=== PATIENT | female | born 1990 | race Caucasian/White ===

== ENCOUNTER 2018-06-20 13:02 | Inpatient (IN) | payer OTHER ==
[2018-06-20 13:36] VITALS: BMI 28.3
--- NOTE | 2018-06-20 14:50 | HP ---
COWS - Scale Resting Pulse: 1= [place] 81-100 Sweatin= Chills/Flushing Restless Observation: 1= Difficult to Sit Still Pupil Size: 0= Normal to Room Light Bone or Joint Aches: 1= Mild Discomfort Runny Nose/ Eye Tearin= Runny Nose/Eyes GI Upset > 30mins: 3= Vomiting/Diarrhea Tremor Observation: 1= Tremor [place], Not Seen Yawning Observation: 1= 1-2x During Session Anxiety or Irritability: 2=Irritable/Anxious Goose Flesh Skin: 0=Smooth Skin COWS Score: 13 CIWA Score Nausea/Vomitin-Int. Nausea w/Dry Heave Muscle Tremors: 2 Anxiety: 2 Agitation: 2 Paroxysmal Sweats: 1-Minimal Palms Moist Orientation: 0-Oriented Tacttile Disturbances: 1-Very Mild Itch/Numbness Auditory Disturbances: 0-None Visual Disturbances: 0-None Headache: 1-Very Mild CIWA-Ar Total Score: 13 - Admission Criteria OAS Guidelines: Admission for Medically Managed Detox: Requires at least one of the followin. CIWA greater than 12 2. Seizures within the past 24 hours 3. Delirium tremens within the past 24 hours 4. Hallucinations within the past 24 hours 5. Acute intervention needed for co occurring medical disorder 6. Acute intervention needed for co occurring psychiatric disorder 7. Severe withdrawal that cannot be handled at a lower level of care (continued vomiting, continued diarrhea, abnormal vital signs) requiring intravenous medication and/or fluids 8. Patient presents the following: CIWA greater than 12 Admission Criteria Met: Admission criteria met Admission [facility] Chief Complaint: " heroin detox" Allergies/Adverse Reactions: Allergies Allergy/AdvReac Type Severity Reaction Status Date / Time No Known Allergies Allergy Verified 06/20/18 15:19 History of Present Illness: 27 yo female with hx of IV heroin and benzo dependence is here seeking detox, this is patient first admission to this facility. Patient currently under parole for drug DWI, as per patient she is self referred. Last detox 2015 at [facility] in [place]. PMHX: anemia, depression, bipolar, anxiety, PTSD. Denies suicidal / homicidal ideation or suicide attempts. OD x 3, with last episode a week ago. Longest period of sobriety November 2017 - March 2018 while in intermediate, no sobriety period while in the community. Report was on suboxone treatment for opioid disorder but treatment was interrupted once patient was incarcerated. others' Prescriptions Patient Name: Katerina Rubio Date: 1990 Address: [address] [place] [address] Sex: Female Rx Written Rx Dispensed Drug Quantity Days Supply Prescriber Name 11/20/2017 11/21/2017 suboxone 8 mg-2 mg sl film 28 28 Corky Torrez MD 10/23/2017 10/23/2017 suboxone 8 mg-2 mg sl film 28 28 Corky Torrez MD 10/09/2017 10/09/2017 suboxone 8 mg-2 mg sl film 14 14 Corky Torrez MD 10/02/2017 10/02/2017 buprenorphine 8 mg tablet sl 7 7 Corky Torrez MD Exam Limitations: No Limitations - Ebola screening Have you traveled outside of the country in the last 21 days: No Have you had contact with anyone from an Ebola affected area: No Have you been sick,other than usual withdrawal symptoms: No Do you have a fever: No - Review of Systems Constitutional: Chills, Loss of Appetite, Other (fatigue) EENT: reports: Nose Congestion, Throat Pain, Other (runny nose) Cardiac: reports: No Symptoms Reported GI: reports: Nausea, Poor Appetite, Vomiting : reports: No Symptoms Reported Musculoskeletal: reports: Joint Pain Integumentary: reports: No Symptoms Reported Neuro: reports: Headache Endocrine: reports: Increased Thirst Hematology: reports: Anemia Psychiatric: reports: Orientated x3, Anxious Other Systems: Reviewed and Negative Patient History - Patient Medical History Hx Anemia: Yes Hx Asthma: Yes Hx Chronic Obstructive Pulmonary Disease (COPD): No Hx Cancer: No Hx Cardiac Disorders: No Hx Congestive Heart Failure: No Hx Hypertension: No Hx Hypercholesterolemia: No Hx Pacemaker: No HX Cerebrovascular Accident: No Hx Seizures: No Hx Dementia: No Hx Diabetes: No Hx Gastrointestinal Disorders: No Hx Liver Disease: No Hx Genitourinary Disorders: No Hx Sexually Transmitted Disorders: No Hx Renal Disease (ESRD): No Hx Thyroid Disease: No Hx Human Immunodeficiency Virus (HIV): No Hx Hepatitis C: No Hx Depression: Yes Hx Suicide Attempt: No Hx Bipolar Disorder: Yes Hx Schizophrenia: No - Patient Surgical History Past Surgical History: Yes Hx Section: Yes ( x2 , 2011 & 2012) - PPD History Previous Implant?: No Documented Results: Negative w/o proof PPD to be Administered?: Yes - Reproductive History Patient is a Female of Child Bearing Age (11 -55 yrs old): Yes Last Menstrual Period: 06/01/18 Patient : No - Smoking Cessation Smoking history: Current every day smoker Have you smoked in the past 12 months: Yes Aproximately how many cigarettes per day: 20 Hx Chewing Tobacco Use: No Initiated information on smoking cessation: Yes 'Breaking Loose' booklet given: 06/20/18 - Substance & Tx. History Hx Alcohol Use: No Hx Substance Use: Yes Substance Use Type: Heroin Hx Substance Use Treatment: Yes - Substances Abused heroin Route: Injection Frequency: Daily Amount used: 1 bundle Age of first use: 15 Date of Last Use: 06/15/18 VALIUM Route: Oral Frequency: Daily Amount used: 30 MG Age of first use: 15 Date of Last Use: 06/18/18 Family Disease History - Family Disease History Family History: Denies Admission Physical Exam BHS - Vital Signs Vital Signs: Vital Signs - 24 hr 06/20/18 13:34 Temperature 98.2 F Pulse Rate 88 Respiratory 20 Rate Blood Pressure 128/72 - Physical General Appearance: Yes: Nourished, Appropriately Dressed, Mild Distress, Sweating, Anxious HEENTM: Yes: EOMI, Hearing grossly Normal, Normal ENT Inspection, Normocephalic , Normal Voice, MANSOOR, Pharynx Normal, Other (dry mucous membranes) Respiratory: Yes: Chest Non-Tender, Lungs Clear, Normal Breath Sounds, No Respiratory Distress, No Accessory Muscle Use Neck: Yes: Within Normal Limits Breast: Yes: Breast Exam Deferred Cardiology: Yes: Regular Rhythm, Regular Rate Abdominal: Yes: Normal Bowel Sounds, Non Tender, Flat, Soft Genitourinary: Yes: Within Normal Limits Back: Yes: Normal Inspection Musculoskeletal: Yes: full range of Motion, Gait Steady, Pelvis Stable, Back pain Extremities: Yes: Within Normal Limits Neurological: Yes: maintenance trainer II-XII NML intact, Fully Oriented, Alert, Motor Strength 5/5, Depressed Affect Integumentary: Yes: Normal Color, Warm, Moist, Track [place] (left anticubital fossa no infection) Lymphatic: Yes: Within Normal Limits - Diagnostic (1) Opioid dependence with withdrawal Current Visit: Yes Status: Acute (2) Sedative, hypnotic or anxiolytic dependence with withdrawal, uncomplicated Current Visit: Yes Status: Acute (3) Depressed affect Current Visit: Yes Status: Acute (4) Asthma Current Visit: Yes Status: Acute Cleared for Admission [facility] - Detox or Rehab [facility] Level of Care: Medically Managed Detox Regimen/Protocol: Methadone [facility] Breath Alcohol Content Breath Alcohol Content: 0 Urine Pregancy Test - Result Urine Test Results: Negative- NO Line Present Urine Drug Screen - Results Drug Screen Negative: No Urine Drug Screen Results: OPI-Opiates, BZO-Benzodiazepines, FEN-Fentanyl Inpatient Rehab Admission - Rehab Decision to Admit Inpatient rehab admission?: No
[2018-06-20] MEDS ORDERED: P-EPHED 60MG/TRIPROLIDI 2.5MG TABLET PO PRN (15:01)
[2018-06-20] MEDS ORDERED: ACETAMINOPHEN 325 MG TABLET (FP) PO PRN (15:01)
[2018-06-20] MEDS ORDERED: MAGNESIUM CITRATE 300 ML BOTTLE PO PRN (15:01)
[2018-06-20] MEDS ORDERED: MAG HYDROX/AL HYDROX/SIMETH 30 ML UNIT-DOSE CUP PO PRN (15:01)
[2018-06-20] MEDS ORDERED: LOPERAMIDE HCL 2 MG CAPSULE PO PRN (15:01)
[2018-06-20] MEDS ORDERED: NICOTINE POLACRILEX 2 MG GUM BC PRN (15:01)
[2018-06-20] MEDS ORDERED: guaiFENesin/D-METHORPHAN HB 10 ML UNIT-DOSE CUPS PO PRN (15:01)
[2018-06-20] MEDS ORDERED: diazePAM 5 MG TABLET PO PRN (15:01)
[2018-06-20] MEDS ORDERED: MAGNESIUM HYDROX 2400MG/30ML ORAL SUSPENSION 30 ML CUP PO PRN (15:01)
[2018-06-20] MEDS ORDERED: MENTHOL/PHENOL 1 EACH UD MM PRN (15:01)
[2018-06-20] MEDS ORDERED: diazePAM 5 MG TABLET PO ONE (17:15)
[2018-06-20] MEDS ORDERED: METHADONE HCL 10 MG TABLET (FOR DETOX USE ONLY) PO ONE ×2 (17:15→23:00)
[2018-06-20] MEDS: THIAMINE HCL 100 MG TABLET (FP) PO SCH (22:20)
[2018-06-20] MEDS: diazePAM 5 MG TABLET PO SCH (22:20)
[2018-06-21] MEDS: diazePAM 5 MG TABLET PO SCH ×3 (06:01→22:31)
[2018-06-21] MEDS ORDERED: METHADONE HCL 10 MG TABLET (FOR DETOX USE ONLY) PO ONE (10:00)
[2018-06-21 10:47] LABS: HEMATOCRIT 37.7 % (32.4-45.2); HEMOGLOBIN 13.2 GM/dL (10.7-15.3); MCH 33.1 pg (25.7-33.7); MCHC 35.2 g/dl (32.0-36.0); MEAN CELL VOLUME 94.3 fl (80-96); MEAN PLT VOLUME 7.8 fl (7.5-11.1); PLATELET COUNT 344 K/MM3 (134-434); RDW 12.9 % (11.6-15.6); WHITE BLOOD COUNT 7.1 K/mm3 (4.0-10.0)
[2018-06-21] MEDS: PRENATAL VITAMINS W/ FOLIC ACID TABLET (FP) PO SCH (10:58)
[2018-06-21] MEDS: NICOTINE 21 MG/24 HOURS TOPICAL PATCH TD SCH (10:58)
[2018-06-21] MEDS: diazePAM 5 MG TABLET PO PRN ×2 (10:59→17:34)
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
[2018-06-21 11:38] LABS: ALBUMIN 4.3 g/dl (3.4-5.0); ALK PHOS 73 U/L (45-117); ANION GAP 8 MMOL/L (8-16); BILIRUBIN,TOTAL 0.7 mg/dL (0.2-1); BLOOD UREA NITROGEN 9 mg/dL (7-18); CALCIUM 9.2 mg/dL (8.5-10.1); CHLORIDE 98 mmol/L (98-107); CO2 30 mmol/L (21-32); CREATININE 0.7 mg/dL (0.55-1.3); GLUCOSE,RANDOM 90 mg/dL (74-106); POTASSIUM 3.5 mmol/L (3.5-5.1); SGOT/AST 20 U/L (15-37); SGPT/ALT 22 U/L (13-61); SODIUM 136 mmol/L (136-145); TOT PROT 7.8 g/dl (6.4-8.2)
--- NOTE | 2018-06-21 12:00 | EKG ---
Test Reason : Blood Pressure : / mmHG Vent. Rate : 071 BPM Atrial Rate : 071 BPM P-R Int : 128 ms QRS Dur : 090 ms QT Int : 386 ms P-R-T Axes : 023 076 032 degrees QTc Int : 419 ms NORMAL SINUS RHYTHM WITH SINUS ARRHYTHMIA NORMAL ECG NO PREVIOUS ECGS AVAILABLE Confirmed by CORRINA BROWN MD ([id number]) on 06/21/2018 12:00:11 PM Referred By: Confirmed By:CORRINA BROWN MD
--- NOTE | 2018-06-21 15:38 | PN ---
S CIWA - CIWA Score Nausea/Vomitin Muscle Tremors: None Anxiety: 2 Agitation: 0-Normal Activity Paroxysmal Sweats: 3 Orientation: 0-Oriented Tacttile Disturbances: 3-Moderate Itch/Numb/Burn Auditory Disturbances: 0-None Visual Disturbances: 2-Mild Sensitivity Headache: 2-Mild CIWA-Ar Total Score: 15 BHS COWS - Scale Resting Pulse: 1= [place] 81-100 Sweatin= Chills/Flushing Restless Observation: 1= Difficult to Sit Still Pupil Size: 0= Normal to Room Light Bone or Joint Aches: 2= Severe Diffuse Aches Runny Nose/ Eye Tearin= None GI Upset > 30mins: 2= Nausea/Diarrhea Tremor Observation of Outstretched Hands: 0= None Yawning Observation: 1= 1-2x During Session Anxiety or Irritability: 2=Irritable/Anxious Goose Flesh Skin: 3=Piloerection COWS Score: 13 BHS Progress Note (SOAP) Subjective: Nausea, Interrupted Sleep, Itching, Sweating, H/A. Objective: PATIENT A & O X 2 (UNCERTAIN ABOUT CURRENT DAY / DATE). PATIENT OBSERVED AMBULATING ON UNIT. IN NO ACUTE DISTRESS. 06/21/18 15:36 Vital Signs Temperature 98.1 F 06/21/18 13:55 Pulse Rate 94 H 06/21/18 13:55 Respiratory Rate 20 06/21/18 13:55 Blood Pressure 100/80 06/21/18 13:55 O2 Sat by Pulse Oximetry (%) Laboratory Tests 06/20/18 06/21/18 06/21/18 06:24 06:24 06:24 WBC 7.1 RBC 4.00 Hgb 13.2 Hct 37.7 MCV 94.3 MCH 33.1 MCHC 35.2 RDW 12.9 Plt Count 344 MPV 7.8 Sodium 136 Potassium 3.5 Chloride 98 Carbon Dioxide 30 Anion Gap 8 BUN 9 Creatinine 0.7 Creat Clearance w eGFR > 60 Random Glucose 90 Calcium 9.2 Total Bilirubin 0.7 AST 20 ALT 22 Alkaline Phosphatase 73 Total Protein 7.8 Albumin 4.3 RPR Titer HIV 1&2 Antibody Screen Negative HIV P24 Antigen Negative 06/21/18 06:24 WBC RBC Hgb Hct MCV MCH MCHC RDW Plt Count MPV Sodium Potassium Chloride Carbon Dioxide Anion Gap BUN Creatinine Creat Clearance w eGFR Random Glucose Calcium Total Bilirubin AST ALT Alkaline Phosphatase Total Protein Albumin RPR Titer Nonreactive HIV 1&2 Antibody Screen HIV P24 Antigen LABS NOTED. HCV AB RESULT PENDING. 06/21/18 15:38 Assessment: 06/21/18 15:37 WITHDRAWAL SYMPTOMS. Plan: CONTINUE DETOX. INCREASE DAILY PO FLUID INTAKE. TIGAN PO FOR NAUSEA.
[2018-06-21] MEDS: THIAMINE HCL 100 MG TABLET (FP) PO SCH (22:30)
[2018-06-21] MEDS: TRIMETHOBENZAMIDE HCL 300 MG CAPSULE PO PRN (22:30)
[2018-06-21] MEDS: QUEtiapine FUMARATE 50 MG TABLET PO SCH (22:30)
[2018-06-22] MEDS ORDERED: METHADONE HCL 5 MG TABLET (FOR DETOX USE ONLY) PO ONE (10:00)
[2018-06-22] MEDS: diazePAM 5 MG TABLET PO SCH ×2 (10:39→22:02)
[2018-06-22] MEDS: NICOTINE 21 MG/24 HOURS TOPICAL PATCH TD SCH (10:39)
[2018-06-22] MEDS: PRENATAL VITAMINS W/ FOLIC ACID TABLET (FP) PO SCH (10:39)
[2018-06-22] MEDS: TRIMETHOBENZAMIDE HCL 300 MG CAPSULE PO PRN (10:40)
[2018-06-22] MEDS: diazePAM 5 MG TABLET PO PRN ×2 (14:23→18:40)
[2018-06-22] MEDS: IBUPROFEN 400 MG TABLET (FP) PO PRN (17:20)
--- NOTE | 2018-06-22 19:03 | PN ---
S CIWA - CIWA Score Nausea/Vomitin Muscle Tremors: 3 Anxiety: 3 Agitation: 0-Normal Activity Paroxysmal Sweats: No Perspiration Orientation: 0-Oriented Tacttile Disturbances: 2-Mild Itch/Numbness/Burn Auditory Disturbances: 0-None Visual Disturbances: 0-None Headache: 3-Moderate CIWA-Ar Total Score: 14 BHS COWS - Scale Resting Pulse: 1= MA 81-100 Sweatin= No chills or Flushing Restless Observation: 0= Sits Still Pupil Size: 0= Normal to Room Light Bone or Joint Aches: 0= None Runny Nose/ Eye Tearin= None GI Upset > 30mins: 2= Nausea/Diarrhea Tremor Observation of Outstretched Hands: 2= Slight Tremor Visible Yawning Observation: 2= >3x During Session Anxiety or Irritability: 2=Irritable/Anxious Goose Flesh Skin: 0=Smooth Skin COWS Score: 9 BHS Progress Note (SOAP) Subjective: Tremors, Fatigue, H/A, Nausea. Objective: PATIENT A & O X 3, OBSERVED AMBULATING ON UNIT. IN NO ACUTE DISTRESS. 06/22/18 19:02 Vital Signs Temperature 97.1 F L 06/22/18 17:51 Pulse Rate 87 06/22/18 17:51 Respiratory Rate 16 06/22/18 17:51 Blood Pressure 119/87 06/22/18 17:51 O2 Sat by Pulse Oximetry (%) Laboratory Tests 06/20/18 06/20/18 06/21/18 06:24 06:24 06:24 WBC 7.1 RBC 4.00 Hgb 13.2 Hct 37.7 MCV 94.3 MCH 33.1 MCHC 35.2 RDW 12.9 Plt Count 344 MPV 7.8 Sodium Potassium Chloride Carbon Dioxide Anion Gap BUN Creatinine Creat Clearance w eGFR Random Glucose Calcium Total Bilirubin AST ALT Alkaline Phosphatase Total Protein Albumin RPR Titer Hep C Ab Diagnostic <0.1 HIV 1&2 Antibody Screen Negative HIV P24 Antigen Negative 06/21/18 06/21/18 06:24 06:24 WBC RBC Hgb Hct MCV MCH MCHC RDW Plt Count MPV Sodium 136 Potassium 3.5 Chloride 98 Carbon Dioxide 30 Anion Gap 8 BUN 9 Creatinine 0.7 Creat Clearance w eGFR > 60 Random Glucose 90 Calcium 9.2 Total Bilirubin 0.7 AST 20 ALT 22 Alkaline Phosphatase 73 Total Protein 7.8 Albumin 4.3 RPR Titer Nonreactive Hep C Ab Diagnostic HIV 1&2 Antibody Screen HIV P24 Antigen LABS NOTED. Assessment: 06/22/18 19:03 WITHDRAWAL SYMPTOMS. Plan: CONTINUE DETOX. INCREASE DAILY PO FLUID INTAKE. PRN TIGAN PO FOR NAUSEA.
[2018-06-22 21:26] LABS: URINE APPEARANCE CLEAR; URINE BILIRUBIN NEGATIVE (<2.0 mg/dL); URINE COLOR STRAW; URINE GLUCOSE (UA) NEGATIVE (NEGATIVE); URINE KETONE NEGATIVE (NEGATIVE); URINE LEUK ESTERASE NEGATIVE (NEGATIVE); URINE NITRITE NEGATIVE (NEGATIVE); URINE PROTEIN NEGATIVE (NEGATIVE)
[2018-06-22] MEDS: QUEtiapine FUMARATE 50 MG TABLET PO SCH (22:02)
[2018-06-22] MEDS: THIAMINE HCL 100 MG TABLET (FP) PO SCH (22:02)
[2018-06-22] MEDS: MELATONIN 5 MG TABLETS PO PRN (22:02)
[2018-06-23] MEDS: IBUPROFEN 400 MG TABLET (FP) PO PRN (09:04)
[2018-06-23] MEDS: diazePAM 5 MG TABLET PO SCH ×2 (09:05→22:02)
[2018-06-23] MEDS: TRIMETHOBENZAMIDE HCL 300 MG CAPSULE PO PRN (09:06)
[2018-06-23] MEDS ORDERED: METHADONE HCL 5 MG TABLET (FOR DETOX USE ONLY) PO ONE (10:00)
[2018-06-23] MEDS: NICOTINE 21 MG/24 HOURS TOPICAL PATCH TD SCH (10:11)
[2018-06-23] MEDS: PRENATAL VITAMINS W/ FOLIC ACID TABLET (FP) PO SCH (10:11)
[2018-06-23] MEDS: diazePAM 5 MG TABLET PO PRN (13:51)
--- NOTE | 2018-06-23 16:53 | PN ---
BHS Progress Note (SOAP) Subjective: vomiting anxiety constipation verbalized wanting to get back on suboxone Objective: 06/23/18 16:51 A & O x 3 Ambulating on unit Restless Vital Signs Temperature 97 F L 06/23/18 13:29 Pulse Rate 86 06/23/18 13:29 Respiratory Rate 18 06/23/18 13:29 Blood Pressure 135/80 06/23/18 13:29 O2 Sat by Pulse Oximetry (%) Assessment: 06/23/18 16:52 withdrawal sx anxious about aftercare plan Plan: continue detox continue anti emetic prn maalox/citroma for constipation educated and encouraged to discuss d/c plan with counselor
[2018-06-23] MEDS: hydrOXYzine PAMOATE 50 MG CAPSULE (FP) PO PRN (17:50)
[2018-06-23] MEDS: QUEtiapine FUMARATE 50 MG TABLET PO SCH (22:02)
[2018-06-23] MEDS: THIAMINE HCL 100 MG TABLET (FP) PO SCH (22:02)
[2018-06-23] MEDS: MELATONIN 5 MG TABLETS PO PRN (22:03)
[2018-06-24] MEDS ORDERED: METHADONE HCL 10 MG TABLET (FOR DETOX USE ONLY) PO ONE (10:00)
[2018-06-24] MEDS ORDERED: diazePAM 5 MG TABLET PO SCH (10:00)
[2018-06-24] MEDS: NICOTINE 21 MG/24 HOURS TOPICAL PATCH TD SCH (10:21)
[2018-06-24] MEDS: PRENATAL VITAMINS W/ FOLIC ACID TABLET (FP) PO SCH (10:21)
--- NOTE | 2018-06-24 11:30 | PN ---
[facility] CIWA - CIWA Score Nausea/Vomitin-No Nausea/No Vomiting Muscle Tremors: 2 Anxiety: 1-Mildly Anxious Agitation: 1-Slight > Activity Paroxysmal Sweats: 1-Minimal Palms Moist Orientation: 0-Oriented Tacttile Disturbances: 0-None Auditory Disturbances: 0-None Visual Disturbances: 0-None Headache: 1-Very Mild CIWA-Ar Total Score: 6 S COWS - Scale Resting Pulse: 0= CT 80 or Below Sweatin= Chills/Flushing Restless Observation: 0= Sits Still Pupil Size: 0= Normal to Room Light Bone or Joint Aches: 1= Mild Discomfort Runny Nose/ Eye Tearin= Nasal Congestion GI Upset > 30mins: 1= Stomach Cramp Tremor Observation of Outstretched Hands: 0= None Yawning Observation: 0= None Anxiety or Irritability: 0= None Goose Flesh Skin: 0=Smooth Skin COWS Score: 4 S Progress Note (SOAP) Subjective: feeling better less body aches mild tremor sleep better at night more energy discuss aftercare with staff Objective: 06/24/18 11:32 Vital Signs Temperature 97.0 F L 06/24/18 09:36 Pulse Rate 86 06/24/18 09:36 Respiratory Rate 18 06/24/18 09:36 Blood Pressure 116/74 06/24/18 09:36 O2 Sat by Pulse Oximetry (%) Laboratory Last Values WBC 7.1 K/mm3 (4.0-10.0) 06/21/18 06:24 RBC 4.00 M/mm3 (3.60-5.2) 06/21/18 06:24 Hgb 13.2 GM/dL (10.7-15.3) 06/21/18 06:24 Hct 37.7 % (32.4-45.2) 06/21/18 06:24 MCV 94.3 fl (80-96) 06/21/18 06:24 MCH 33.1 pg (25.7-33.7) 06/21/18 06:24 MCHC 35.2 g/dl (32.0-36.0) 06/21/18 06:24 RDW 12.9 % (11.6-15.6) 06/21/18 06:24 Plt Count 344 K/MM3 (134-434) 06/21/18 06:24 MPV 7.8 fl (7.5-11.1) 06/21/18 06:24 Sodium 136 mmol/L (136-145) 06/21/18 06:24 Potassium 3.5 mmol/L (3.5-5.1) 06/21/18 06:24 Chloride 98 mmol/L (98-107) 06/21/18 06:24 Carbon Dioxide 30 mmol/L (21-32) 06/21/18 06:24 Anion Gap 8 MMOL/L (8-16) 06/21/18 06:24 BUN 9 mg/dL (7-18) 06/21/18 06:24 Creatinine 0.7 mg/dL (0.55-1.3) 06/21/18 06:24 Creat Clearance w eGFR > 60 (>60) 06/21/18 06:24 Random Glucose 90 mg/dL (74-106) 06/21/18 06:24 Calcium 9.2 mg/dL (8.5-10.1) 06/21/18 06:24 Total Bilirubin 0.7 mg/dL (0.2-1) 06/21/18 06:24 AST 20 U/L (15-37) 06/21/18 06:24 ALT 22 U/L (13-61) 06/21/18 06:24 Alkaline Phosphatase 73 U/L (45-117) 06/21/18 06:24 Total Protein 7.8 g/dl (6.4-8.2) 06/21/18 06:24 Albumin 4.3 g/dl (3.4-5.0) 06/21/18 06:24 Urine Color Straw 06/22/18 17:26 Urine Appearance Clear 06/22/18 17:26 Urine pH 7.0 (5.0-8.0) 06/22/18 17:26 Ur Specific [place] 1.010 (1.010-1.035) 06/22/18 17:26 Urine Protein Negative (NEGATIVE) 06/22/18 17:26 Urine Glucose (UA) Negative (NEGATIVE) 06/22/18 17:26 Urine Ketones Negative (NEGATIVE) 06/22/18 17:26 Urine Blood Negative (NEGATIVE) 06/22/18 17:26 Urine Nitrite Negative (NEGATIVE) 06/22/18 17:26 Urine Bilirubin Negative (<2.0 mg/dL) 06/22/18 17:26 Urine Urobilinogen 2.0 mg/dL (0.2-1.0) H 06/22/18 17:26 Ur Leukocyte Esterase Negative (NEGATIVE) 06/22/18 17:26 RPR Titer Nonreactive (NONREACTIVE) 06/21/18 06:24 Hep C Ab Diagnostic <0.1 s/co ratio (0.0-0.9) 06/20/18 06:24 HIV 1&2 Antibody Screen Negative 06/20/18 06:24 HIV P24 Antigen Negative 06/20/18 06:24 lab noted Assessment: 06/24/18 11:32 mild withdrawal sx Plan: continue detox
[2018-06-24] MEDS: IBUPROFEN 400 MG TABLET (FP) PO PRN (13:46)
[2018-06-24] MEDS: hydrOXYzine PAMOATE 50 MG CAPSULE (FP) PO PRN ×2 (13:46→22:07)
[2018-06-24] MEDS: QUEtiapine FUMARATE 50 MG TABLET PO SCH (22:07)
[2018-06-24] MEDS: MELATONIN 5 MG TABLETS PO PRN (22:07)
[2018-06-24] MEDS: THIAMINE HCL 100 MG TABLET (FP) PO SCH (22:07)
[2018-06-25] MEDS ORDERED: METHADONE HCL 5 MG TABLET (FOR DETOX USE ONLY) PO ONE (06:00)
--- NOTE | 2018-06-25 08:46 | DS ---
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 as well as ventolin prn pump encourage medication assisted treatment program - Physical Exam Results Vital Signs: Vital Signs Temperature 96.9 F L 06/25/18 06:48 Pulse Rate 66 06/25/18 06:48 Respiratory Rate 18 06/25/18 06:48 Blood Pressure 99/57 L 06/25/18 06:48 O2 Sat by Pulse Oximetry (%) Pertinent Admission Physical Exam Findings: benzo and opiate withdrawal sx Laboratory Last Values WBC 7.1 K/mm3 (4.0-10.0) 06/21/18 06:24 RBC 4.00 M/mm3 (3.60-5.2) 06/21/18 06:24 Hgb 13.2 GM/dL (10.7-15.3) 06/21/18 06:24 Hct 37.7 % (32.4-45.2) 06/21/18 06:24 MCV 94.3 fl (80-96) 06/21/18 06:24 MCH 33.1 pg (25.7-33.7) 06/21/18 06:24 MCHC 35.2 g/dl (32.0-36.0) 06/21/18 06:24 RDW 12.9 % (11.6-15.6) 06/21/18 06:24 Plt Count 344 K/MM3 (134-434) 06/21/18 06:24 MPV 7.8 fl (7.5-11.1) 06/21/18 06:24 Sodium 136 mmol/L (136-145) 06/21/18 06:24 Potassium 3.5 mmol/L (3.5-5.1) 06/21/18 06:24 Chloride 98 mmol/L (98-107) 06/21/18 06:24 Carbon Dioxide 30 mmol/L (21-32) 06/21/18 06:24 Anion Gap 8 MMOL/L (8-16) 06/21/18 06:24 BUN 9 mg/dL (7-18) 06/21/18 06:24 Creatinine 0.7 mg/dL (0.55-1.3) 06/21/18 06:24 Creat Clearance w eGFR > 60 (>60) 06/21/18 06:24 Random Glucose 90 mg/dL (74-106) 06/21/18 06:24 Calcium 9.2 mg/dL (8.5-10.1) 06/21/18 06:24 Total Bilirubin 0.7 mg/dL (0.2-1) 06/21/18 06:24 AST 20 U/L (15-37) 06/21/18 06:24 ALT 22 U/L (13-61) 06/21/18 06:24 Alkaline Phosphatase 73 U/L (45-117) 06/21/18 06:24 Total Protein 7.8 g/dl (6.4-8.2) 06/21/18 06:24 Albumin 4.3 g/dl (3.4-5.0) 06/21/18 06:24 Urine Color Straw 06/22/18 17:26 Urine Appearance Clear 06/22/18 17:26 Urine pH 7.0 (5.0-8.0) 06/22/18 17:26 Ur Specific [place] 1.010 (1.010-1.035) 06/22/18 17:26 Urine Protein Negative (NEGATIVE) 06/22/18 17:26 Urine Glucose (UA) Negative (NEGATIVE) 06/22/18 17:26 Urine Ketones Negative (NEGATIVE) 06/22/18 17:26 Urine Blood Negative (NEGATIVE) 06/22/18 17:26 Urine Nitrite Negative (NEGATIVE) 06/22/18 17:26 Urine Bilirubin Negative (<2.0 mg/dL) 06/22/18 17:26 Urine Urobilinogen 2.0 mg/dL (0.2-1.0) H 06/22/18 17:26 Ur Leukocyte Esterase Negative (NEGATIVE) 06/22/18 17:26 RPR Titer Nonreactive (NONREACTIVE) 06/21/18 06:24 Hep C Ab Diagnostic <0.1 s/co ratio (0.0-0.9) 06/20/18 06:24 HIV 1&2 Antibody Screen Negative 06/20/18 06:24 HIV P24 Antigen Negative 06/20/18 06:24 lab noted - Treatment Hospital Course: Detox Protocol Followed, Detoxed Safely, Responded well, Discharged Condition Good, Rehab Referral Accepted Patient has Accepted a Rehab Referral to: [facility] - Medication Discharge Medications: Ambulatory Orders Bupropion HCl [Wellbutrin Sr] 300 mg PO DAILY 06/20/18 Quetiapine Fumarate [Seroquel] 100 mg PO BID 06/20/18 traZODone HCL [Trazodone HCl] 100 mg PO DAILY 06/20/18 Bupropion HCl [Wellbutrin Xl -] 150 mg PO DAILY 06/21/18 Albuterol Sulfate Inhaler - [Ventolin HFA Inhaler -] 2 inh PO Q4H PRN #1 inhaler 06/24/18 Naloxone HCl [Narcan] 4 mg NS ASDIR PRN #1 spray 06/25/18 - Diagnosis (1) Opioid dependence with withdrawal Current Visit: Yes Status: Acute (2) Sedative, hypnotic or anxiolytic dependence with withdrawal, uncomplicated Current Visit: Yes Status: Acute (3) Asthma Current Visit: Yes Status: Chronic Qualifiers: Asthma severity: mild Asthma persistence: intermittent Asthma complication type: with status asthmaticus Qualified Code(s): J45.22 - Mild intermittent asthma with status asthmaticus (4) Substance induced mood disorder Current Visit: Yes Status: Suspected - AMA Did Patient Leave Against Medical Advice: No
[2018-06-25 09:23] VITALS: BP 124/86; PULSE 120; TEMP 97.9
[2018-06-25] MEDS ORDERED: ONDANSETRON *ODT* 4 MG TABLET SL ONE (10:00)
[2018-06-25] MEDS: PRENATAL VITAMINS W/ FOLIC ACID TABLET (FP) PO SCH (10:11)
[2018-06-25] MEDS: NICOTINE 21 MG/24 HOURS TOPICAL PATCH TD SCH (10:12)
== END 2018-06-25 14:25 | disposition home or self-care (01) | DRG 773 ==
LOC: YASAS 13:02 → Y3N 17:02
PROVIDERS: ADMIT Surgery; ATTEND Surgery
PROC: HZ2ZZZZ Detoxification Services for Substance Abuse Treatment (ICD-10-PCS; principal; 2018-06-20)
DX: F11.23 Opioid dependence with withdrawal (principal); F13.230 Sedative, hypnotic or anxiolytic dependence with withdrawal, uncomplicated; F17.210 Nicotine dependence, cigarettes, uncomplicated; F19.24 Other psychoactive substance dependence with psychoactive substance-induced mood disorder; F39 Unspecified mood [affective] disorder; J45.22 Mild intermittent asthma with status asthmaticus; R45.89 Other symptoms and signs involving emotional state; Z86.2 Personal history of diseases of the blood and blood-forming organs and certain disorders involving the immune mechanism
CPT/HCPCS: 36415; 80053; 81003; 85027; 86593; 86803; 87389; 93005; 93010; Q0162

== ENCOUNTER 2018-06-25 13:42 | Inpatient (IN) | payer OTHER ==
--- NOTE | 2018-06-25 12:23 | HP ---
[facility] Rehab Assess/Revision - Admission History Admitted to Rehab from: [facility] Date of Admission to Rehab: 06/25/18 - Findings Detox History & Physical reviewed: Yes Concur with findings: Yes Comments/Additional Findings: transferred from detox to rehab admission as per protocol Inpatient Rehab Admission - Rehab Decision to Admit Inpatient rehab admission?: Yes - Initial Determination Are CD services needed?: Yes Free of communicable disease: Yes Not in need of hospitalization: Yes - Rehab Admission Criteria Previous failed treatment: Yes Poor recovery environment: Yes Comorbidities: Yes Lacks judgement: No Patient is meeting Inpatient Rehab admission criteria:: Yes
[~2018-06-25 13:42] MED LIST: ACETAMINOPHEN 325 MG TABLET (FP) PO PRN; IBUPROFEN 400 MG TABLET (FP) PO PRN; LOPERAMIDE HCL 2 MG CAPSULE PO PRN; MAG HYDROX/AL HYDROX/SIMETH 30 ML UNIT-DOSE CUP PO PRN; MAGNESIUM CITRATE 300 ML BOTTLE PO PRN; MAGNESIUM HYDROX 2400MG/30ML ORAL SUSPENSION 30 ML CUP PO PRN; MENTHOL/PHENOL 1 EACH UD MM PRN; NICOTINE POLACRILEX 4 MG GUM BUC PRN; P-EPHED 60MG/TRIPROLIDI 2.5MG TABLET PO PRN; guaiFENesin/D-METHORPHAN HB 10 ML UNIT-DOSE CUPS PO PRN
[2018-06-25] MEDS ORDERED: QUEtiapine FUMARATE 25 MG TABLET (FP) PO ONE (21:39)
--- NOTE | 2018-06-25 21:41 | PN ---
[facility] Progress Note Note: Vital Signs Temperature 97.8 F 06/25/18 14:59 Pulse Rate 96 H 06/25/18 14:59 Respiratory Rate 18 06/25/18 14:59 Blood Pressure 119/80 06/25/18 14:59 O2 Sat by Pulse Oximetry (%) Patient with hx of insomnia, bipolar, ptsd c/o difficulty sleeping. psych consult ordered seroquel 25 hs ordered for tonight continue to monitor
[2018-06-25] MEDS: THIAMINE HCL 100 MG TABLET (FP) PO SCH (21:49)
[2018-06-25] MEDS: MELATONIN 5 MG TABLETS PO PRN (21:49)
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
[2018-06-26] MEDS: NICOTINE 21 MG/24 HOURS TOPICAL PATCH TD SCH (09:46)
[2018-06-26] MEDS: PRENATAL VITAMINS W/ FOLIC ACID TABLET (FP) PO SCH (09:46)
[2018-06-26] MEDS ORDERED: COLLOIDAL OATMEAL 1 BAR EACH TP PRN (10:03)
--- NOTE | 2018-06-26 10:07 | PN ---
[facility] Progress Note Note: PATIENT INFORMED RN SHE WAS ON SUBOXONE PROGRAM BEFORE INCARCERATION AND WOULD LIKE TO RESUME MAT. ISTOP VERIFIED LAST SUBOXONE PRESCRIPTION 10/2017. PATIENT REFERRED TO COUNSELOR RELL CHAPPELL TO CONNECT TO PROGRAM PRIOR TO STARTING MAT.
[2018-06-26] MEDS ORDERED: BUPRENORPHINE/NALOXONE 2 MG/0.5 MG FILM PACKET SL ONE ×2 (15:00→22:00)
--- NOTE | 2018-06-26 15:44 | PN ---
[facility] COWS - Scale Resting Pulse: 0= [place] 80 or Below Sweatin= No chills or Flushing Restless Observation: 1= Difficult to Sit Still Pupil Size: 2= Moderately Dilated Bone or Joint Aches: 2= Severe Diffuse Aches Runny Nose/ Eye Tearin= None GI Upset > 30mins: 1= Stomach Cramp Tremor Observation of Outstretched Hands: 0= None Yawning Observation: 0= None Anxiety or Irritability: 4=Extreme Anxiety Goose Flesh Skin: 0=Smooth Skin COWS Score: 10 B[facility] Progress Note (SOAP) Subjective: PATIENT WITH HX OF HEROIN DEPENDENCE IV AND HX OF SUBOXONE MAT, LAST PRESCRIPTION 10/2017. PATIENT CURRENTLY CONNECTED TO [facility] OUTPATIENT PROGRAM AND TO CONTINUE WITH MAT AT CENTER ONCE DISCHARGED. PATIENT C /O OPIOD CRAVINGS, ANXIETY AND RESTLESSNESS. Vital Signs Temperature 98.0 F 06/26/18 07:45 Pulse Rate 62 06/26/18 07:45 Respiratory Rate 18 06/26/18 07:45 Blood Pressure 105/68 06/26/18 07:45 O2 Sat by Pulse Oximetry (%) Objective: 06/26/18 15:46 PE: ALERT AND ORIENTED X 3 SKIN WARM AND DRY EXT FULL ROM, AMB AD ALESSANDRO, NO VISIBLE TREMORS +EXTREMELY ANXIOUS, PACING IN HALLWAY Vital Signs Temperature 98.0 F 06/26/18 07:45 Pulse Rate 62 06/26/18 07:45 Respiratory Rate 18 06/26/18 07:45 Blood Pressure 105/68 06/26/18 07:45 O2 Sat by Pulse Oximetry (%) Assessment: 06/26/18 15:47 WITHDRAWAL SX SUBOXONE MAT Plan: WILL START SUBOXONE 2MG NOW, THEN 2MG AT 10PM WILL RE-EVALUATE IN AM CONTINUE TO MONITOR CLINICALLY
[2018-06-26] MEDS: MELATONIN 5 MG TABLETS PO PRN (21:30)
[2018-06-26] MEDS: QUEtiapine FUMARATE 50 MG TABLET PO SCH (21:31)
[2018-06-26] MEDS: THIAMINE HCL 100 MG TABLET (FP) PO SCH (21:31)
[2018-06-27] MEDS: PRENATAL VITAMINS W/ FOLIC ACID TABLET (FP) PO SCH (10:29)
[2018-06-27] MEDS: BUPRENORPHINE/NALOXONE 8 MG/2 MG FILM PACKET SL SCH (10:29)
[2018-06-27] MEDS: NICOTINE 21 MG/24 HOURS TOPICAL PATCH TD SCH (10:29)
--- NOTE | 2018-06-27 11:28 | PN ---
[facility] COWS - Scale Resting Pulse: 1= DE 81-100 Sweatin= No chills or Flushing Restless Observation: 1= Difficult to Sit Still Pupil Size: 2= Moderately Dilated Bone or Joint Aches: 1= Mild Discomfort Runny Nose/ Eye Tearin= Nasal Congestion GI Upset > 30mins: 1= Stomach Cramp Tremor Observation of Outstretched Hands: 0= None Yawning Observation: 0= None Anxiety or Irritability: 2=Irritable/Anxious Goose Flesh Skin: 0=Smooth Skin COWS Score: 9 B[facility] Progress Note (SOAP) Subjective: PATIENT STATES OPIOD CRAVINGS REDUCED. STILL C/O MILD CHILLS, ANXIETY AND STOMACH CRAMPS BUT OVERALL FEELS BETTER. Objective: 06/27/18 11:25 Vital Signs Temperature 97.7 F 06/27/18 07:34 Pulse Rate 79 06/27/18 07:34 Respiratory Rate 18 06/27/18 07:34 Blood Pressure 110/73 06/27/18 07:34 O2 Sat by Pulse Oximetry (%) PE: ALERT AND ORIENTED X3 SKIN WARM AND DRY GI NT, ND EXT FULL ROM, AMB AD ALESSANDRO +ANXIETY/RESTLESSNESS Assessment: 06/27/18 11:26 SUBOXONE MAT ANXIETY Plan: INCREASE SUBOXONE TO 8MG/2MG DAILY ENCOURAGE ORAL FLUIDS' PSYCH CONSULT FOR ANXIETY AND MEDICATION REVIEW CONTINUE TO MONITOR
[2018-06-27] MEDS: MELATONIN 5 MG TABLETS PO PRN (21:43)
[2018-06-27] MEDS: QUEtiapine FUMARATE 50 MG TABLET PO SCH (21:43)
[2018-06-27] MEDS: THIAMINE HCL 100 MG TABLET (FP) PO SCH (21:43)
[2018-06-28] MEDS: PRENATAL VITAMINS W/ FOLIC ACID TABLET (FP) PO SCH (10:04)
[2018-06-28] MEDS: NICOTINE 21 MG/24 HOURS TOPICAL PATCH TD SCH (10:04)
[2018-06-28] MEDS: BUPRENORPHINE/NALOXONE 8 MG/2 MG FILM PACKET SL SCH (10:04)
--- NOTE | 2018-06-28 12:16 | PN ---
Psychiatric Progress Note Vital Signs: Vital Signs Period Temp Pulse Resp BP Sys/Arrington Pulse Ox Last 24 Hr 97.9 F 73 16-18 116/75 Date of Session: 06/28/18 Chief Complaint:: "my mood is unstable" HPI: Patient requesting additional medications to help manage her history of mood instability. ROS: Anemia, Asthma Current Medications: Active Medications Generic Name Dose Route Start Last Admin Trade Name Freq PRN Reason Stop Dose Admin Acetaminophen 650 mg 06/25/18 12:23 Tylenol - PO Q4H PRN FEVER Al Hydroxide/Mg Hydroxide 30 ml 06/25/18 12:23 Mylanta Oral Suspension - PO Q6H PRN DYSPEPSIA Buprenorphine/Naloxone 1 each 06/27/18 10:00 06/28/18 10:04 Suboxone 8mg/2mg Sl Film - SL 1 each DAILY AYDEN Administration Bupropion HCl 300 mg 06/26/18 10:00 06/28/18 10:04 Wellbutrin Xl - PO 300 mg DAILY AYDEN Administration Colloidal Oatmeal 1 applic 06/26/18 10:03 06/26/18 10:21 Aveeno Soap - TP 1 applic DAILY PRN Administration HYGEINE Eucalyptus/Menthol/Phenol/Sorbitol 1 each 06/25/18 12:23 Cepastat Lozenge - MM Q4H PRN SORE THROAT Guaifenesin 10 ml 06/25/18 12:23 Robitussin Dm - PO Q6H PRN COUGH Ibuprofen 400 mg 06/25/18 12:23 Motrin - PO Q6H PRN Pain Level 4-6 Loperamide HCl 4 mg 06/25/18 12:23 Imodium - PO Q6H PRN DIARRHEA Magnesium Citrate 300 ml 06/25/18 12:23 Citroma - PO Q48H PRN CONSTIPATION Magnesium Hydroxide 30 ml 06/25/18 12:23 06/26/18 09:46 Milk Of Magnesia - PO 30 ml DAILY PRN Administration CONSTIPATION Melatonin 5 mg 06/25/18 22:00 06/27/18 21:43 Melatonin PO 5 mg HS PRN Administration INSOMNIA Nicotine 21 mg 06/26/18 10:00 06/28/18 10:04 Nicoderm Patch - TD 21 mg DAILY AYDEN Administration Nicotine Polacrilex 4 mg 06/25/18 12:23 Nicorette Gum - BUC Q2H PRN NICOTINE REPLACEMENT RX Multivit/Folic Acid/Iron 1 tab 06/26/18 10:00 06/28/18 10:04 Vitamins (Sjr) - PO 1 tab DAILY AYDEN Administration Pseudoephedrine/Triprolidine 1 combo 06/25/18 12:23 Actifed - PO TID PRN NASAL CONGESTION Quetiapine Fumarate 50 mg 06/26/18 21:00 06/27/18 21:43 Seroquel - PO 50 mg HS@2100 AYDEN Administration Quetiapine Fumarate 50 mg 06/28/18 11:30 Seroquel - PO DAILY AYDEN Thiamine HCl 100 mg 06/25/18 22:00 06/27/18 21:43 Vitamin B1 - PO 100 mg HS AYDEN Administration Medication(s) Change(s): Yes. Will add seroquel 50mg daily. Current Side Effect: No Lab tests ordered: No Lab tests reviewed: Yes Provider note:: Patient seen by clinical writer on 06/26/18. Ms. Rubio reports history of bipolar disorder which has been managed with wellbutrin 300mg XL and Seroquel 100mg TID (reports noncompliance to seroquel dosage). She currently reports worsening irritability and feels that her mood is unstable. Patient requesting to resume seroquel in the morning. Psychoeducation provided. Patient encouraged to utilized her coping mechanisms and to accept vistaril 50mg as needed. Patient satisifed and receptive to feedback. Will order Seroquel 50mg daily. Total face to face time:: 25 Mental Status Exam - Mental Status Exam Alert and Oriented to: Time, Place, Person Cognitive Function: Good Patient Appearance: Well Groomed Mood: Euthymic Affect: Appropriate Patient Behavior: Appropriate, Cooperative Speech Pattern: Clear, Appropriate Voice Loudness: Normal Thought Process: Intact, Goal Oriented Thought Disorder: Not Present Hallucinations: Denies Suicidal Ideation: Denies Homicidal Ideation: Denies Insight/Judgement: Poor Sleep: Fair Appetite: Fair Muscle strength/Tone: Normal Gait/Station: Normal Psychiatric Treatment Plan - Problem List (1) Opioid dependence Current Visit: Yes (2) Sedative hypnotic or anxiolytic dependence Current Visit: Yes (3) Mood disorder Current Visit: Yes
[2018-06-28] MEDS: QUEtiapine FUMARATE 50 MG TABLET PO SCH ×2 (12:40→21:26)
[2018-06-28] MEDS: THIAMINE HCL 100 MG TABLET (FP) PO SCH (21:26)
[2018-06-28] MEDS: MELATONIN 5 MG TABLETS PO PRN (21:27)
[2018-06-29 06:50] VITALS: BP 117/73; PULSE 67; TEMP 97.7
[2018-06-29] MEDS: BUPRENORPHINE/NALOXONE 8 MG/2 MG FILM PACKET SL SCH (09:46)
[2018-06-29] MEDS: NICOTINE 21 MG/24 HOURS TOPICAL PATCH TD SCH (09:46)
[2018-06-29] MEDS: PRENATAL VITAMINS W/ FOLIC ACID TABLET (FP) PO SCH (09:46)
[2018-06-29] MEDS: QUEtiapine FUMARATE 50 MG TABLET PO SCH (09:47)
--- NOTE | 2018-06-29 15:12 | PN ---
[facility] Progress Note Note: Psychiatric nurse practitioner note: Patient leaving rehab today after she reports disappointment with the treatment provided. Patient denies thoughts or urges to hurtself or others. Patient states that she has an appointment in one week to see an outpatient provider. A two week prescription of Wellbutrin 300mg XL + Seroquel 50mg BID was electronically sent to [id number] at [address] [place] [address].
--- NOTE | 2018-06-29 16:26 | PN ---
BHS COWS - Scale Resting Pulse: 0= SD 80 or Below Sweatin=Flushed/Facial Moisture Restless Observation: 1= Difficult to Sit Still Pupil Size: 2= Moderately Dilated Bone or Joint Aches: 1= Mild Discomfort Runny Nose/ Eye Tearin= None GI Upset > 30mins: 0= None Tremor Observation of Outstretched Hands: 0= None Yawning Observation: 0= None Anxiety or Irritability: 2=Irritable/Anxious Goose Flesh Skin: 0=Smooth Skin COWS Score: 8 BHS Progress Note (SOAP) Subjective: PATIENT SEEN FOR SUBOXONE MEDICATION ADJUSTMENT SHE C/O ANXIETY, RESTLESSNESS , AND INTERMITTENT CHILLS. DURING EXAM, PATIENT STATED SHE WANTED TO SIGN OUT AMA SHE HAS PERSONAL MATTERS TO ATTEND TO AND WILL CONTINUE HER TREATMENT AT [facility] IN [place]. Objective: 06/29/18 16:28 Vital Signs Temperature 97.7 F 06/29/18 06:50 Pulse Rate 67 06/29/18 06:50 Respiratory Rate 16 06/29/18 06:50 Blood Pressure 117/73 06/29/18 06:50 O2 Sat by Pulse Oximetry (%) PE: ALERT AND ORIENTED X 3 SKIN WARM, MILD FACIAL FLUSHING EXT FULL ROM, NO VISIBLE TREMORS +RESTLESSNESS AND MILDLY IRRITABLE Assessment: 06/29/18 16:30 SUBOXONE MAINTENANCE TREATMENT Plan: DUE TO SYMPTOMS, WILL START SUBOXONE 8MG BID MONITOR RESPONSE PATIENT ENCOURAGED TO COMPLETE REHAB TO PREVENT RELAPSE AND STATED TO PROVIDER " I WILL THINK ABOUT IT".
[2018-06-29] MEDS ORDERED: BUPRENORPHINE/NALOXONE 8 MG/2 MG FILM PACKET SL SCH (22:00)
== END 2018-06-29 16:45 | disposition left against medical advice (07) | DRG 770 ==
LOC: YASAS 13:42 → Y3E 13:43
PROVIDERS: ADMIT Neuromusculoskeletal Medicine & OMM; ATTEND Neuromusculoskeletal Medicine & OMM
PROC: HZ40ZZZ Group Counseling for Substance Abuse Treatment, Cognitive (ICD-10-PCS; principal; 2018-06-25)
DX: F11.20 Opioid dependence, uncomplicated (principal); F13.20 Sedative, hypnotic or anxiolytic dependence, uncomplicated; F39 Unspecified mood [affective] disorder; F31.9 Bipolar disorder, unspecified; F43.10 Post-traumatic stress disorder, unspecified; J45.909 Unspecified asthma, uncomplicated; G47.00 Insomnia, unspecified; D64.9 Anemia, unspecified

== ENCOUNTER 2021-10-11 16:53 | Inpatient (IN) | payer OTHER ==
[2021-10-11 17:36] VITALS: BMI 24.7
[2021-10-11] MEDS ORDERED: hydrOXYzine PAMOATE 25 MG CAPSULE (FP) PO PRN (18:07)
[2021-10-11] MEDS ORDERED: MAGNESIUM HYDROX 2400MG/30ML ORAL SUSPENSION 30 ML CUP PO PRN (18:07)
[2021-10-11] MEDS ORDERED: NICOTINE 10 MG CARTRIDGE (INHALER) IH PRN (18:07)
[2021-10-11] MEDS ORDERED: BENZOCAINE/MENTHOL (CHLORASEPTIC ) LOZENGE MM PRN (18:07)
[2021-10-11] MEDS ORDERED: ACETAMINOPHEN 325 MG TABLET (FP) PO PRN ×2 (18:07)
[2021-10-11] MEDS ORDERED: BISMUTH SUBSALICYLATE 524 MG/30 ML PO PRN (18:07)
[2021-10-11] MEDS ORDERED: MAG HYDROX/AL HYDROX/SIMETH 30 ML UNIT-DOSE CUP PO PRN (18:07)
[2021-10-11] MEDS ORDERED: MAGNESIUM CITRATE 300 ML BOTTLE PO PRN (18:07)
[2021-10-11] MEDS ORDERED: MELATONIN 5 MG TABLETS PO PRN (18:07)
[2021-10-11] MEDS ORDERED: IBUPROFEN 600 MG TABLET (FP) PO PRN (18:07)
[2021-10-11] MEDS ORDERED: ONDANSETRON *ODT* 4 MG TABLET SL PRN (18:07)
[2021-10-11] MEDS ORDERED: DICYCLOMINE HCL 10 MG CAPSULE PO PRN (18:07)
[2021-10-11] MEDS ORDERED: IBUPROFEN 400 MG TABLET (FP) PO PRN (18:07)
[2021-10-11] MEDS ORDERED: LOPERAMIDE HCL 2 MG CAPSULE PO PRN (18:07)
[2021-10-11] MEDS ORDERED: METHOCARBAMOL 500 MG TABLET PO PRN (18:07)
[2021-10-11] MEDS ORDERED: diazePAM 5 MG TABLET PO PRN (18:10)
[2021-10-11] MEDS ORDERED: NICOTINE POLACRILEX 2 MG GUM BUC PRN (21:56)
[2021-10-11] MEDS ORDERED: THIAMINE HCL 100 MG TABLET (FP) PO SCH (22:00)
[2021-10-11] MEDS ORDERED: BACITRACIN 0.9 GM PACKET TP SCH (22:00)
[2021-10-11] MEDS: levETIRAcetam 500 MG TABLET (FP) PO SCH (22:43)
[2021-10-11] MEDS: diazePAM 5 MG TABLET PO SCH (22:43)
[2021-10-11] MEDS: SULFAMETHOXAZOLE/TRIMETHOPRIM 800MG/160MG D.S. TABLET PO SCH (22:43)
[2021-10-12] MEDS: diazePAM 5 MG TABLET PO SCH (06:25)
[2021-10-12 09:17] VITALS: BP 108/59; PULSE 63; TEMP 96.9
[2021-10-12] MEDS ORDERED: methaDONE HCL 10 MG TABLET PO ONE (09:19)
[2021-10-12] MEDS ORDERED: PRENATAL VITAMINS W/ FOLIC ACID TABLET (FP) PO SCH (10:00)
[2021-10-12] MEDS ORDERED: methaDONE HCL 40 MG DISPERSABLE TABLET ONE (10:03)
[2021-10-12] MEDS ORDERED: methaDONE HCL 10 MG TABLET ONE (10:03)
[2021-10-12] MEDS: levETIRAcetam 500 MG TABLET (FP) PO SCH (10:15)
[2021-10-12] MEDS: SULFAMETHOXAZOLE/TRIMETHOPRIM 800MG/160MG D.S. TABLET PO SCH (10:16)
[2021-10-13] MEDS ORDERED: methaDONE HCL 10 MG TABLET PO SCH (06:00)
[2021-10-13] MEDS ORDERED: diazePAM 5 MG TABLET PO SCH (06:00)
[2021-10-14] MEDS ORDERED: diazePAM 5 MG TABLET PO SCH (06:00)
[2021-10-15] MEDS ORDERED: diazePAM 5 MG TABLET PO ONE (06:00)
== END 2021-10-12 10:50 | disposition left against medical advice (07) | DRG 770 ==
LOC: YASAS 16:53 → Y6N 20:42
PROVIDERS: ADMIT Allergy & Immunology; ATTEND Surgery
PROC: HZ2ZZZZ Detoxification Services for Substance Abuse Treatment (ICD-10-PCS; principal; 2021-10-11)
DX: F13.230 Sedative, hypnotic or anxiolytic dependence with withdrawal, uncomplicated (principal); F11.20 Opioid dependence, uncomplicated; F14.20 Cocaine dependence, uncomplicated; F17.210 Nicotine dependence, cigarettes, uncomplicated; F31.81 Bipolar II disorder; G40.909 Epilepsy, unspecified, not intractable, without status epilepticus; B18.2 Chronic viral hepatitis C; Z28.310 Unvaccinated for COVID-19
CPT/HCPCS: 81025; 87811; C9803-CS; U0003; U0005

== ENCOUNTER 2021-10-15 17:44 | Inpatient (IN) | payer OTHER ==
[2021-10-15 21:33] VITALS: BMI 23.9
[2021-10-15] MEDS ORDERED: MAGNESIUM CITRATE 300 ML BOTTLE PO PRN (21:54)
[2021-10-15] MEDS ORDERED: IBUPROFEN 600 MG TABLET (FP) PO PRN (21:54)
[2021-10-15] MEDS ORDERED: BENZOCAINE/MENTHOL (CHLORASEPTIC ) LOZENGE MM PRN (21:54)
[2021-10-15] MEDS ORDERED: MAGNESIUM HYDROX 2400MG/30ML ORAL SUSPENSION 30 ML CUP PO PRN (21:54)
[2021-10-15] MEDS ORDERED: BISMUTH SUBSALICYLATE 524 MG/30 ML PO PRN (21:54)
[2021-10-15] MEDS ORDERED: DICYCLOMINE HCL 10 MG CAPSULE PO PRN (21:54)
[2021-10-15] MEDS ORDERED: ONDANSETRON *ODT* 4 MG TABLET SL PRN (21:54)
[2021-10-15] MEDS ORDERED: LOPERAMIDE HCL 2 MG CAPSULE PO PRN (21:54)
[2021-10-15] MEDS ORDERED: MAG HYDROX/AL HYDROX/SIMETH 30 ML UNIT-DOSE CUP PO PRN (21:54)
[2021-10-15] MEDS ORDERED: IBUPROFEN 400 MG TABLET (FP) PO PRN (21:54)
[2021-10-15] MEDS ORDERED: NALOXONE HCL 0.4 MG/ML VIAL IM PRN (21:54)
[2021-10-15] MEDS ORDERED: ACETAMINOPHEN 325 MG TABLET (FP) PO PRN ×2 (21:54)
[2021-10-15] MEDS ORDERED: MELATONIN 5 MG TABLETS PO SCH (22:00)
[2021-10-15] MEDS ORDERED: hydrOXYzine PAMOATE 25 MG CAPSULE (FP) PO ONE (23:25)
[2021-10-15] MEDS ORDERED: diazePAM 5 MG TABLET ONE (23:25)
[2021-10-15] MEDS: PRENATAL VITAMINS W/ FOLIC ACID TABLET (FP) PO SCH (23:27)
[2021-10-15] MEDS: diazePAM 5 MG TABLET PO SCH (23:27)
[2021-10-15] MEDS: hydrOXYzine PAMOATE 25 MG CAPSULE (FP) PO SCH (23:27)
[2021-10-15] MEDS: NICOTINE 21 MG/24 HOURS TOPICAL PATCH TD SCH (23:29)
[2021-10-15] MEDS: THIAMINE HCL 100 MG TABLET (FP) PO SCH (23:29)
[2021-10-16] MEDS ORDERED: diazePAM 5 MG TABLET ONE (06:20)
[2021-10-16] MEDS: diazePAM 5 MG TABLET PO SCH ×4 (06:21→23:07)
[2021-10-16] MEDS: hydrOXYzine PAMOATE 25 MG CAPSULE (FP) PO SCH ×5 (06:21→22:11)
[2021-10-16] MEDS ORDERED: hydrOXYzine PAMOATE 25 MG CAPSULE (FP) PO ONE (06:21)
[2021-10-16] MEDS ORDERED: ALBUTEROL SO4 HFA INHALER IH PRN (09:43)
[2021-10-16] MEDS ORDERED: methaDONE HCL 10 MG TABLET PO SCH (09:45)
[2021-10-16 10:27] LABS: HEMATOCRIT 29.9 % (32.4-45.2); HEMOGLOBIN 10.4 GM/dL (10.7-15.3); MCH 30.7 pg (25.7-33.7); MCHC 34.6 g/dl (32.0-36.0); MEAN CELL VOLUME 88.5 fl (80-96); MEAN PLT VOLUME 6.9 fl (7.5-11.1); PLATELET COUNT 297 10^3/uL (134-434); RBC 3.38 M/mm3 (3.60-5.2); RDW 13.4 % (11.6-15.6); WHITE BLOOD COUNT 4.5 K/mm3 (4.0-10.0)
[2021-10-16 10:32] LABS: CALCIUM 9.1 mg/dL (8.5-10.1)
[2021-10-16 10:36] LABS: CREATININE 0.6 mg/dL (0.55-1.3)
[2021-10-16 10:37] LABS: BILIRUBIN,TOTAL 0.3 mg/dL (0.2-1); TOT PROT 6.3 g/dl (6.4-8.2)
[2021-10-16] MEDS ORDERED: methaDONE HCL 10 MG TABLET ONE (10:44)
[2021-10-16] MEDS ORDERED: methaDONE HCL 40 MG DISPERSABLE TABLET ONE (10:45)
[2021-10-16] MEDS: PRENATAL VITAMINS W/ FOLIC ACID TABLET (FP) PO SCH (10:47)
[2021-10-16] MEDS: NICOTINE 21 MG/24 HOURS TOPICAL PATCH TD SCH (10:48)
[2021-10-16] MEDS: NICOTINE 10 MG CARTRIDGE (INHALER) IH PRN ×2 (17:58→22:12)
[2021-10-16] MEDS: PRAZOSIN HCL 1 MG CAPSULE PO SCH (22:11)
[2021-10-16] MEDS: THIAMINE HCL 100 MG TABLET (FP) PO SCH (22:11)
[2021-10-16] MEDS: SUVOREXANT 10 MG TABLET PO PRN (22:14)
[2021-10-16] MEDS: LITHIUM CARBONATE 300 MG CAPSULE PO SCH ×2 (22:15→23:07)
[2021-10-17] MEDS ORDERED: methaDONE HCL 40 MG DISPERSABLE TABLET ONE (04:22)
[2021-10-17] MEDS ORDERED: methaDONE HCL 10 MG TABLET ONE (04:22)
[2021-10-17] MEDS: diazePAM 5 MG TABLET PO SCH ×3 (06:04→22:23)
[2021-10-17] MEDS: hydrOXYzine PAMOATE 25 MG CAPSULE (FP) PO SCH ×5 (06:05→22:23)
[2021-10-17] MEDS: PRENATAL VITAMINS W/ FOLIC ACID TABLET (FP) PO SCH (10:40)
[2021-10-17] MEDS: METHOCARBAMOL 500 MG TABLET PO PRN ×2 (10:40→18:08)
[2021-10-17] MEDS: NICOTINE 21 MG/24 HOURS TOPICAL PATCH TD SCH (10:41)
[2021-10-17] MEDS: NICOTINE 10 MG CARTRIDGE (INHALER) IH PRN ×4 (10:41→22:28)
[2021-10-17] MEDS: diazePAM 5 MG TABLET PO PRN ×2 (10:42→18:06)
[2021-10-17] MEDS: THIAMINE HCL 100 MG TABLET (FP) PO SCH (22:23)
[2021-10-17] MEDS: PRAZOSIN HCL 1 MG CAPSULE PO SCH (22:23)
[2021-10-17] MEDS: SUVOREXANT 10 MG TABLET PO PRN (22:25)
[2021-10-18] MEDS: LITHIUM CARBONATE 300 MG CAPSULE PO SCH ×2 (00:22→22:21)
[2021-10-18] MEDS ORDERED: methaDONE HCL 10 MG TABLET ONE (04:42)
[2021-10-18] MEDS ORDERED: methaDONE HCL 40 MG DISPERSABLE TABLET ONE (04:42)
[2021-10-18] MEDS: NICOTINE 10 MG CARTRIDGE (INHALER) IH PRN ×5 (05:48→22:23)
[2021-10-18] MEDS: diazePAM 5 MG TABLET PO SCH ×2 (05:49→17:50)
[2021-10-18] MEDS: hydrOXYzine PAMOATE 25 MG CAPSULE (FP) PO SCH ×5 (05:50→22:21)
[2021-10-18] MEDS: PRENATAL VITAMINS W/ FOLIC ACID TABLET (FP) PO SCH (10:13)
[2021-10-18] MEDS: METHOCARBAMOL 500 MG TABLET PO PRN ×2 (10:13→17:49)
[2021-10-18] MEDS: diazePAM 5 MG TABLET PO PRN (10:14)
[2021-10-18] MEDS: NICOTINE 21 MG/24 HOURS TOPICAL PATCH TD SCH (10:14)
[2021-10-18] MEDS: SUVOREXANT 10 MG TABLET PO PRN (22:20)
[2021-10-18] MEDS: THIAMINE HCL 100 MG TABLET (FP) PO SCH (22:21)
[2021-10-18] MEDS: PRAZOSIN HCL 1 MG CAPSULE PO SCH (22:21)
[2021-10-19] MEDS ORDERED: methaDONE HCL 10 MG TABLET ONE (04:07)
[2021-10-19] MEDS ORDERED: methaDONE HCL 40 MG DISPERSABLE TABLET ONE (04:08)
[2021-10-19] MEDS: hydrOXYzine PAMOATE 25 MG CAPSULE (FP) PO SCH ×5 (05:42→22:12)
[2021-10-19] MEDS ORDERED: diazePAM 5 MG TABLET PO ONE ×2 (06:00→18:00)
[2021-10-19] MEDS: METHOCARBAMOL 500 MG TABLET PO PRN (09:55)
[2021-10-19] MEDS: PRENATAL VITAMINS W/ FOLIC ACID TABLET (FP) PO SCH (09:55)
[2021-10-19] MEDS: NICOTINE 21 MG/24 HOURS TOPICAL PATCH TD SCH ×2 (09:55→10:20)
[2021-10-19] MEDS: NICOTINE 10 MG CARTRIDGE (INHALER) IH PRN ×3 (09:56→22:13)
[2021-10-19] MEDS ORDERED: SUVOREXANT 10 MG TABLET PO PRN (22:00)
[2021-10-19] MEDS: PRAZOSIN HCL 1 MG CAPSULE PO SCH (22:12)
[2021-10-19] MEDS: LITHIUM CARBONATE 300 MG CAPSULE PO SCH (22:12)
[2021-10-19] MEDS: THIAMINE HCL 100 MG TABLET (FP) PO SCH (22:13)
[2021-10-20] MEDS ORDERED: methaDONE HCL 10 MG TABLET ONE (04:22)
[2021-10-20] MEDS ORDERED: methaDONE HCL 40 MG DISPERSABLE TABLET ONE (04:23)
[2021-10-20] MEDS ORDERED: diazePAM 5 MG TABLET PO ONE (05:00)
[2021-10-20] MEDS: hydrOXYzine PAMOATE 25 MG CAPSULE (FP) PO SCH ×2 (05:44→09:35)
[2021-10-20] MEDS: NICOTINE 10 MG CARTRIDGE (INHALER) IH PRN (05:48)
[2021-10-20 08:59] VITALS: BP 122/77; PULSE 77; TEMP 98
[2021-10-20] MEDS: PRENATAL VITAMINS W/ FOLIC ACID TABLET (FP) PO SCH (09:35)
[2021-10-20] MEDS: NICOTINE 21 MG/24 HOURS TOPICAL PATCH TD SCH (09:36)
== END 2021-10-20 11:59 | disposition other institution (70) | DRG 773 ==
LOC: YASAS 17:44 → Y6N 10-16 08:51
PROVIDERS: ADMIT Allergy & Immunology; ATTEND Surgery
PROC: HZ2ZZZZ Detoxification Services for Substance Abuse Treatment (ICD-10-PCS; principal; 2021-10-16)
DX: F13.230 Sedative, hypnotic or anxiolytic dependence with withdrawal, uncomplicated (principal); F11.20 Opioid dependence, uncomplicated; F17.210 Nicotine dependence, cigarettes, uncomplicated; F31.89 Other bipolar disorder; F43.10 Post-traumatic stress disorder, unspecified; F90.9 Attention-deficit hyperactivity disorder, unspecified type; F19.282 Other psychoactive substance dependence with psychoactive substance-induced sleep disorder; F41.9 Anxiety disorder, unspecified; B18.2 Chronic viral hepatitis C; Z28.310 Unvaccinated for COVID-19; Z86.69 Personal history of other diseases of the nervous system and sense organs; Z62.810 Personal history of physical and sexual abuse in childhood; Z56.0 Unemployment, unspecified; Z59.01 Sheltered homelessness
CPT/HCPCS: 36415; 80053; 80178; 81025; 85027; 86780; 93005; 93010; C9803-CS; Q0162; U0003; U0005

== ENCOUNTER 2022-01-31 10:01 | Inpatient (IN) | payer OTHER ==
[2022-01-31 10:27] VITALS: BMI 26.5
[2022-01-31] MEDS ORDERED: NALOXONE HCL (KLOXXADO) 8 MG SPRAY NS PRN (11:28)
[2022-01-31] MEDS ORDERED: IBUPROFEN 400 MG TABLET (FP) PO PRN (11:28)
[2022-01-31] MEDS ORDERED: ONDANSETRON *ODT* 4 MG TABLET SL PRN (11:28)
[2022-01-31] MEDS ORDERED: MAG HYDROX/AL HYDROX/SIMETH -MYLANTA- ORAL SUSPENSION PO PRN ×2 (11:28→12:00)
[2022-01-31] MEDS ORDERED: LOPERAMIDE HCL 2 MG CAPSULE PO PRN (11:28)
[2022-01-31] MEDS ORDERED: IBUPROFEN 600 MG TABLET (FP) PO PRN (11:28)
[2022-01-31] MEDS ORDERED: MAGNESIUM HYDROX 2400MG/30ML ORAL SUSPENSION 30 ML CUP PO PRN (11:28)
[2022-01-31] MEDS ORDERED: BISMUTH SUBSALICYLATE 262 MG/15 ML BTL PO PRN (11:28)
[2022-01-31] MEDS ORDERED: DICYCLOMINE HCL 10 MG CAPSULE PO PRN (11:28)
[2022-01-31] MEDS ORDERED: BENZOCAINE/MENTHOL (CHLORASEPTIC ) LOZENGE MM PRN (11:28)
[2022-01-31] MEDS ORDERED: ACETAMINOPHEN 325 MG TABLET (FP) PO PRN ×2 (11:28)
[2022-01-31] MEDS ORDERED: diazePAM 5 MG TABLET PO PRN (11:28)
[2022-01-31] MEDS ORDERED: MAGNESIUM CITRATE 300 ML BOTTLE PO PRN (11:28)
[2022-01-31] MEDS ORDERED: ALBUTEROL SO4 HFA INHALER IH PRN (11:35)
[2022-01-31] MEDS ORDERED: diazePAM 5 MG TABLET ONE (11:54)
[2022-01-31] MEDS: diazePAM 5 MG TABLET PO SCH ×3 (11:58→22:35)
[2022-01-31] MEDS: NICOTINE 10 MG CARTRIDGE (INHALER) IH PRN ×2 (13:18→22:36)
[2022-01-31] MEDS: hydrOXYzine PAMOATE 25 MG CAPSULE (FP) PO SCH ×3 (13:18→22:35)
[2022-01-31] MEDS: NICOTINE POLACRILEX 4 MG GUM BUC PRN (13:19)
[2022-01-31] MEDS ORDERED: MELATONIN 5 MG TABLETS PO SCH (22:00)
[2022-01-31] MEDS: THIAMINE HCL 100 MG TABLET (FP) PO SCH (22:34)
[2022-01-31] MEDS: BACITRACIN 15 GM TUBE TOPICAL OINTMENT TP SCH (22:35)
[2022-01-31] MEDS: METHOCARBAMOL 500 MG TABLET PO PRN (22:36)
[2022-02-01] MEDS: diazePAM 5 MG TABLET PO SCH ×2 (06:11→10:21)
[2022-02-01] MEDS: hydrOXYzine PAMOATE 25 MG CAPSULE (FP) PO SCH ×5 (06:11→22:32)
[2022-02-01] MEDS: methaDONE HCL 40 MG DISPERSABLE TABLET PO SCH (08:46)
[2022-02-01] MEDS: PRENATAL VITAMINS W/ FOLIC ACID TABLET (FP) PO SCH (10:19)
[2022-02-01] MEDS: NICOTINE 10 MG CARTRIDGE (INHALER) IH PRN ×3 (10:38→22:35)
[2022-02-01 11:22] LABS: HEMATOCRIT 39.7 % (32.4-45.2); HEMOGLOBIN 13.5 GM/dL (10.7-15.3); MEAN CELL VOLUME 88.4 fl (80-96); PLATELET COUNT 262 10^3/uL (134-434); RBC 4.49 M/mm3 (3.60-5.2); RDW 14.6 % (11.6-15.6); WHITE BLOOD COUNT 4.6 K/mm3 (4.0-10.0)
[2022-02-01] MEDS: BACITRACIN 15 GM TUBE TOPICAL OINTMENT TP SCH ×2 (11:23→22:46)
[2022-02-01 11:29] LABS: CALCIUM 9.3 mg/dL (8.5-10.1)
[2022-02-01 11:30] LABS: ALBUMIN 3.4 g/dl (3.4-5.0); BLOOD UREA NITROGEN 12.2 mg/dL (7-18)
[2022-02-01 11:32] LABS: CREATININE 0.7 mg/dL (0.55-1.3)
[2022-02-01 11:33] LABS: TOT PROT 6.8 g/dl (6.4-8.2)
[2022-02-01 11:34] LABS: BILIRUBIN,TOTAL 0.4 mg/dL (0.2-1)
[2022-02-01] MEDS ORDERED: LORazepam 1 MG TABLET PO PRN (13:43)
[2022-02-01] MEDS: LACTULOSE 20 GM/30 ML UDC (FOR ORAL USE ONLY) PO SCH ×3 (14:07→22:44)
[2022-02-01] MEDS: LORazepam 2 MG TABLET PO SCH ×2 (17:39→22:32)
[2022-02-01] MEDS: METHOCARBAMOL 500 MG TABLET PO PRN (22:32)
[2022-02-01] MEDS: OLANZapine 10 MG TABLET PO SCH (22:32)
[2022-02-01] MEDS: THIAMINE HCL 100 MG TABLET (FP) PO SCH (22:32)
[2022-02-01] MEDS: MELATONIN 5 MG TABLETS PO SCH (22:32)
[2022-02-02] MEDS ORDERED: diazePAM 5 MG TABLET PO SCH (06:00)
[2022-02-02] MEDS: LORazepam 1 MG TABLET PO SCH ×3 (06:13→17:50)
[2022-02-02] MEDS: methaDONE HCL 40 MG DISPERSABLE TABLET PO SCH (06:13)
[2022-02-02] MEDS: hydrOXYzine PAMOATE 25 MG CAPSULE (FP) PO SCH ×4 (06:13→17:50)
[2022-02-02] MEDS: PRENATAL VITAMINS W/ FOLIC ACID TABLET (FP) PO SCH (10:13)
[2022-02-02] MEDS: LACTULOSE 20 GM/30 ML UDC (FOR ORAL USE ONLY) PO SCH ×4 (10:13→22:41)
[2022-02-02] MEDS: NICOTINE 10 MG CARTRIDGE (INHALER) IH PRN ×2 (10:17→14:58)
[2022-02-02] MEDS: NICOTINE POLACRILEX 4 MG GUM BUC PRN ×2 (10:17→12:55)
[2022-02-02] MEDS: BACITRACIN 15 GM TUBE TOPICAL OINTMENT TP SCH ×2 (13:18→23:30)
[2022-02-02] MEDS: METHOCARBAMOL 500 MG TABLET PO PRN (17:50)
[2022-02-02] MEDS ORDERED: diazePAM 5 MG TABLET PO ONE (18:51)
[2022-02-02] MEDS ORDERED: diazePAM 5 MG TABLET PO PRN (18:51)
[2022-02-02] MEDS: THIAMINE HCL 100 MG TABLET (FP) PO SCH (22:39)
[2022-02-02] MEDS: hydrOXYzine PAMOATE 25 MG CAPSULE (FP) PO PRN (22:39)
[2022-02-02] MEDS: MELATONIN 5 MG TABLETS PO SCH (22:40)
[2022-02-02] MEDS: diazePAM 5 MG TABLET PO SCH (22:40)
[2022-02-02] MEDS: OLANZapine 10 MG TABLET PO SCH (23:30)
[2022-02-03] MEDS ORDERED: LORazepam 0.5 MG TABLET PO PRN
[2022-02-03] MEDS ORDERED: LORazepam 0.5 MG TABLET PO SCH (05:00)
[2022-02-03] MEDS: hydrOXYzine PAMOATE 25 MG CAPSULE (FP) PO PRN ×2 (05:44→22:17)
[2022-02-03] MEDS: diazePAM 5 MG TABLET PO SCH (05:45)
[2022-02-03] MEDS: methaDONE HCL 40 MG DISPERSABLE TABLET PO SCH (05:45)
[2022-02-03] MEDS ORDERED: diazePAM 5 MG TABLET PO SCH (06:00)
[2022-02-03] MEDS ORDERED: BACITRACIN 0.9 GM PACKET ONE (09:44)
[2022-02-03] MEDS: LACTULOSE 20 GM/30 ML UDC (FOR ORAL USE ONLY) PO SCH ×4 (10:43→22:18)
[2022-02-03] MEDS: BACITRACIN 15 GM TUBE TOPICAL OINTMENT TP SCH ×2 (10:43→22:18)
[2022-02-03] MEDS: PRENATAL VITAMINS W/ FOLIC ACID TABLET (FP) PO SCH (10:43)
[2022-02-03] MEDS: NICOTINE 10 MG CARTRIDGE (INHALER) IH PRN (12:52)
[2022-02-03] MEDS ORDERED: diazePAM 5 MG TABLET PO ONE (18:00)
[2022-02-03 21:52] VITALS: RESP 18
[2022-02-03] MEDS: THIAMINE HCL 100 MG TABLET (FP) PO SCH (22:17)
[2022-02-03] MEDS: METHOCARBAMOL 500 MG TABLET PO PRN (22:17)
[2022-02-03] MEDS: MELATONIN 5 MG TABLETS PO SCH (22:17)
[2022-02-03] MEDS: OLANZapine 10 MG TABLET PO SCH (22:17)
[2022-02-04] MEDS ORDERED: LORazepam 0.5 MG TABLET PO ONE (05:00)
[2022-02-04] MEDS ORDERED: diazePAM 5 MG TABLET PO ONE ×2 (05:00→06:00)
[2022-02-04] MEDS: methaDONE HCL 40 MG DISPERSABLE TABLET PO SCH (05:10)
[2022-02-04] MEDS ORDERED: diazePAM 5 MG TABLET PO SCH (06:00)
[2022-02-04 09:00] VITALS: BP 118/69; PULSE 74; TEMP 97.3
[2022-02-04] MEDS: LACTULOSE 20 GM/30 ML UDC (FOR ORAL USE ONLY) PO SCH (09:15)
[2022-02-04] MEDS: PRENATAL VITAMINS W/ FOLIC ACID TABLET (FP) PO SCH (09:15)
[2022-02-04] MEDS: BACITRACIN 15 GM TUBE TOPICAL OINTMENT TP SCH (09:15)
[2022-02-05] MEDS ORDERED: diazePAM 5 MG TABLET PO ONE (06:00)
== END 2022-02-04 09:40 | disposition home or self-care (01) | DRG 773 ==
LOC: YASAS 10:01 → Y6N 11:54
PROVIDERS: ADMIT Allergy & Immunology; ATTEND Surgery
PROC: HZ2ZZZZ Detoxification Services for Substance Abuse Treatment (ICD-10-PCS; principal; 2022-01-31)
DX: F13.230 Sedative, hypnotic or anxiolytic dependence with withdrawal, uncomplicated (principal); F11.20 Opioid dependence, uncomplicated; F12.20 Cannabis dependence, uncomplicated; F17.210 Nicotine dependence, cigarettes, uncomplicated; F19.280 Other psychoactive substance dependence with psychoactive substance-induced anxiety disorder; F19.282 Other psychoactive substance dependence with psychoactive substance-induced sleep disorder; F90.9 Attention-deficit hyperactivity disorder, unspecified type; F43.10 Post-traumatic stress disorder, unspecified; J45.909 Unspecified asthma, uncomplicated; R79.89 Other specified abnormal findings of blood chemistry; Z86.2 Personal history of diseases of the blood and blood-forming organs and certain disorders involving the immune mechanism; Z86.19 Personal history of other infectious and parasitic diseases; Z28.310 Unvaccinated for COVID-19; Z56.0 Unemployment, unspecified; Z59.00 Homelessness unspecified
CPT/HCPCS: 36415; 80053; 81025; 82140; 85027; 86780; C9803-CS; U0003; U0005

== ENCOUNTER 2022-08-13 17:29 | Inpatient (IN) | payer OTHER ==
[2022-08-13 18:21] VITALS: BMI 26.5
[2022-08-13] MEDS ORDERED: POLYETHYLENE GLYCOL (HEALTHYLAX) 3350 17 GM PACKET PO PRN (19:44)
[2022-08-13] MEDS ORDERED: BENZOCAINE/MENTHOL (CHLORASEPTIC ) LOZENGE MM PRN (19:44)
[2022-08-13] MEDS ORDERED: BISMUTH SUBSALICYLATE 524 MG/30 ML PO PRN (19:44)
[2022-08-13] MEDS ORDERED: IBUPROFEN 600 MG TABLET (FP) PO PRN (19:44)
[2022-08-13] MEDS ORDERED: NICOTINE 10 MG CARTRIDGE (INHALER) IH PRN (19:44)
[2022-08-13] MEDS ORDERED: MAG HYDROX/AL HYDROX/SIMETH 30 ML UNIT-DOSE CUP PO PRN (19:44)
[2022-08-13] MEDS ORDERED: LOPERAMIDE HCL 2 MG CAPSULE PO PRN (19:44)
[2022-08-13] MEDS ORDERED: NALOXONE HCL 0.4 MG/ML VIAL IM PRN (19:44)
[2022-08-13] MEDS ORDERED: DICYCLOMINE HCL 10 MG CAPSULE PO PRN (19:44)
[2022-08-13] MEDS ORDERED: guaiFENesin 600 MG TABLET.ER (FP) PO PRN (19:44)
[2022-08-13] MEDS ORDERED: NICOTINE POLACRILEX 2 MG GUM BUC PRN (19:44)
[2022-08-13] MEDS ORDERED: clonazePAM 0.5 MG ODT TABLETS SL PRN (19:44)
[2022-08-13] MEDS ORDERED: MAGNESIUM HYDROX 2400MG/30ML ORAL SUSPENSION 30 ML CUP PO PRN (19:44)
[2022-08-13] MEDS ORDERED: IBUPROFEN 400 MG TABLET (FP) PO PRN (19:44)
[2022-08-13] MEDS ORDERED: ACETAMINOPHEN 325 MG TABLET (FP) PO PRN (19:44)
[2022-08-13] MEDS ORDERED: BENZONATATE 200 MG CAPSULE PO PRN (19:44)
[2022-08-13] MEDS ORDERED: NALOXONE HCL (KLOXXADO) 8 MG SPRAY NS PRN (19:44)
[2022-08-13] MEDS ORDERED: methaDONE HCL 10 MG TABLET (FOR DETOX USE ONLY) PO ONE (20:30)
[2022-08-13] MEDS: THIAMINE HCL 100 MG TABLET (FP) PO SCH (21:05)
[2022-08-13] MEDS: SULFAMETHOXAZOLE/TRIMETHOPRIM 800MG/160MG D.S. TABLET PO SCH (21:05)
[2022-08-13] MEDS ORDERED: MELATONIN 5 MG TABLETS PO SCH (22:00)
[2022-08-14] MEDS: PRENATAL VITAMINS W/ FOLIC ACID TABLET (FP) PO SCH (09:42)
[2022-08-14] MEDS: SULFAMETHOXAZOLE/TRIMETHOPRIM 800MG/160MG D.S. TABLET PO SCH ×2 (09:44→22:21)
[2022-08-14] MEDS: clonazePAM 0.5 MG ODT TABLETS SL PRN ×3 (09:45→22:21)
[2022-08-14] MEDS: METHOCARBAMOL 500 MG TABLET PO PRN (17:52)
[2022-08-14] MEDS: traZODone HCL 50 MG TABLET (FP) PO SCH (22:21)
[2022-08-14] MEDS: THIAMINE HCL 100 MG TABLET (FP) PO SCH (22:21)
[2022-08-14] MEDS: PRAZOSIN HCL 1 MG CAPSULE PO SCH (22:21)
[2022-08-15] MEDS: clonazePAM 0.5 MG ODT TABLETS SL PRN ×4 (05:44→22:10)
[2022-08-15] MEDS: PRENATAL VITAMINS W/ FOLIC ACID TABLET (FP) PO SCH (09:59)
[2022-08-15] MEDS: SULFAMETHOXAZOLE/TRIMETHOPRIM 800MG/160MG D.S. TABLET PO SCH ×2 (09:59→22:08)
[2022-08-15] MEDS ORDERED: methaDONE HCL 10 MG TABLET (FOR DETOX USE ONLY) PO ONE (10:00)
[2022-08-15] MEDS: METHOCARBAMOL 500 MG TABLET PO PRN ×2 (10:51→17:34)
[2022-08-15 11:46] LABS: HEMATOCRIT 38.8 % (32.4-45.2); HEMOGLOBIN 13.7 GM/dL (10.7-15.3); MCH 31.2 pg (25.7-33.7); MCHC 35.4 g/dl (32.0-36.0); MEAN CELL VOLUME 88.2 fl (80-96); MEAN PLT VOLUME 7.7 fl (7.5-11.1); PLATELET COUNT 216 10^3/uL (134-434); RDW 12.8 % (11.6-15.6); WHITE BLOOD COUNT 6.4 K/mm3 (4.0-10.0)
[2022-08-15] MEDS ORDERED: ALBUTEROL SO4 HFA INHALER IH PRN (12:17)
[2022-08-15 12:36] LABS: ALBUMIN 3.7 g/dl (3.4-5.0); BILIRUBIN,TOTAL 0.5 mg/dL (0.2-1); BLOOD UREA NITROGEN 8.2 mg/dL (7-18); CALCIUM 9.3 mg/dL (8.5-10.1); CREATININE 0.8 mg/dL (0.55-1.3); TOT PROT 7.9 g/dl (6.4-8.2)
[2022-08-15] MEDS: PRAZOSIN HCL 1 MG CAPSULE PO SCH (22:08)
[2022-08-15] MEDS: traZODone HCL 50 MG TABLET (FP) PO SCH (22:08)
[2022-08-15] MEDS: NAPROXEN 500 MG TABLET PO SCH (22:09)
[2022-08-15] MEDS: THIAMINE HCL 100 MG TABLET (FP) PO SCH (22:09)
[2022-08-16 06:31] VITALS: RESP 16
[2022-08-16] MEDS: NAPROXEN 500 MG TABLET PO SCH ×2 (10:34→22:55)
[2022-08-16] MEDS: clonazePAM 0.5 MG ODT TABLETS SL PRN (10:34)
[2022-08-16] MEDS: SULFAMETHOXAZOLE/TRIMETHOPRIM 800MG/160MG D.S. TABLET PO SCH ×2 (10:34→22:55)
[2022-08-16] MEDS: PRENATAL VITAMINS W/ FOLIC ACID TABLET (FP) PO SCH (10:51)
[2022-08-16 13:01] VITALS: BP 102/61; PULSE 85; TEMP 98.7
[2022-08-16] MEDS: traZODone HCL 50 MG TABLET (FP) PO SCH (22:55)
[2022-08-16] MEDS: PRAZOSIN HCL 1 MG CAPSULE PO SCH (22:55)
[2022-08-16] MEDS: THIAMINE HCL 100 MG TABLET (FP) PO SCH (22:55)
[2022-08-17] MEDS ORDERED: methaDONE HCL 10 MG TABLET (FOR DETOX USE ONLY) PO ONE (10:00)
== END 2022-08-17 00:30 | disposition short-term general hospital (02) | DRG 773 ==
LOC: YASAS 17:29 → Y3N 20:13
PROVIDERS: ADMIT Allergy & Immunology; ATTEND Surgery
PROC: HZ2ZZZZ Detoxification Services for Substance Abuse Treatment (ICD-10-PCS; principal; 2022-08-13)
DX: F11.23 Opioid dependence with withdrawal (principal); F14.20 Cocaine dependence, uncomplicated; F15.20 Other stimulant dependence, uncomplicated; F13.20 Sedative, hypnotic or anxiolytic dependence, uncomplicated; F12.20 Cannabis dependence, uncomplicated; F17.210 Nicotine dependence, cigarettes, uncomplicated; F31.9 Bipolar disorder, unspecified; L03.116 Cellulitis of left lower limb; Z62.810 Personal history of physical and sexual abuse in childhood; Z91.410 Personal history of adult physical and sexual abuse; Z28.310 Unvaccinated for COVID-19; Z28.9 Immunization not carried out for unspecified reason; Z56.0 Unemployment, unspecified; Z59.00 Homelessness unspecified
CPT/HCPCS: 36415; 80053; 85027; 86780; 87811; 93005; 93010; C9803-CS; U0003; U0005

== ENCOUNTER 2022-08-16 16:48 | Observation (INO) | payer OTHER ==
[2022-08-16 21:18] LABS: BASO % 0.5 % (0-2.0); EOS % 7.6 % (0-4.5); HEMATOCRIT 35.9 % (32.4-45.2); HEMOGLOBIN 12.5 GM/dL (10.7-15.3); LYMPH % 30.7 % (8-40); MCH 30.2 pg (25.7-33.7); MCHC 34.9 g/dl (32.0-36.0); MEAN CELL VOLUME 86.7 fl (80-96); MEAN PLT VOLUME 7.3 fl (7.5-11.1); MONO % 9.1 % (3.8-10.2); NEUT % 52.1 % (42.8-82.8); PLATELET COUNT 297 10^3/uL (134-434); RBC 4.14 M/mm3 (3.60-5.2); RDW 12.9 % (11.6-15.6); WHITE BLOOD COUNT 4.9 K/mm3 (4.0-10.0)
[2022-08-16] MEDS ORDERED: PIPERACILLIN/TAZOB 3.375 GM 3.375 GM in DEXTROSE 5%-WATER - 50 ML IVPB ONE (21:29)
[2022-08-16] MEDS ORDERED: VANCOMYCIN 1 GM in D5W (PRE-DOCKED) 1,000 MG/250 ML (RESTRICTED TO ID ONLY IVPB ONE (21:30)
[2022-08-16 21:45] LABS: CHLORIDE 104 mmol/L (98-107); SODIUM 131 mmol/L (136-145)
[2022-08-16 21:47] LABS: ALBUMIN 3.5 g/dl (3.4-5.0); CO2 24 mmol/L (21-32); GLUCOSE,RANDOM 90 mg/dL (74-106)
[2022-08-16 21:48] LABS: BLOOD UREA NITROGEN 9.8 mg/dL (7-18)
[2022-08-16 21:50] LABS: CREATININE 0.7 mg/dL (0.55-1.3)
[2022-08-16 21:51] LABS: SGOT/AST 79 U/L (15-37)
[2022-08-16 21:52] LABS: BILIRUBIN,TOTAL 0.4 mg/dL (0.2-1); TOT PROT 7.8 g/dl (6.4-8.2)
[2022-08-16 21:53] LABS: ALK PHOS 67 U/L (45-117)
[2022-08-16 21:55] LABS: ANION GAP 4 MMOL/L (8-16); SGPT/ALT 21 U/L (13-61)
[2022-08-16] MEDS ORDERED: VANCOMYCIN/WATER FOR INJ (PEG) 1,000 MG/200 ML BAG IVPB ONE (22:45)
[2022-08-16] MEDS ORDERED: PIPERACILLIN/TAZOB 3.375 GM 3.375 GM/50 ML BAG IVPB ONE (22:45)
[2022-08-16] MEDS ORDERED: ACETAMINOPHEN 325 MG TABLET (FP) ONE (23:05)
[2022-08-17] MEDS ORDERED: ALBUTEROL SO4 HFA INHALER IH PRN (02:02)
[2022-08-17] MEDS ORDERED: PIPERACILLIN/TAZOB 3.375 GM 3.375 GM in DEXTROSE 5%-WATER - 50 ML IVPB SCH (04:44)
[2022-08-17] MEDS ORDERED: PATIENT'S OWN MEDICATION (NON-FORMULARY) (Clonazepam [Klonopin] 1 MG Tablet) PO SCH (06:00)
[2022-08-17] MEDS ORDERED: KETOROLAC TROMETHAMINE 30 MG/1 ML VIAL IVPUSH ONE (06:17)
[2022-08-17 06:38] LABS: BASO % 0.7 % (0-2.0); EOS % 8.1 % (0-4.5); HEMOGLOBIN 12.2 GM/dL (10.7-15.3); LYMPH % 41.7 % (8-40); MCH 30.4 pg (25.7-33.7); MEAN PLT VOLUME 7.1 fl (7.5-11.1); MONO % 8.9 % (3.8-10.2); NEUT % 40.6 % (42.8-82.8); PLATELET COUNT 262 10^3/uL (134-434); RBC 4.02 M/mm3 (3.60-5.2); RDW 12.4 % (11.6-15.6)
[2022-08-17 06:54] LABS: CALCIUM 8.7 mg/dL (8.5-10.1)
[2022-08-17 06:55] LABS: ALBUMIN 3.1 g/dl (3.4-5.0); BLOOD UREA NITROGEN 9.4 mg/dL (7-18)
[2022-08-17 06:58] LABS: CREATININE 0.8 mg/dL (0.55-1.3)
[2022-08-17 06:59] LABS: BILIRUBIN,TOTAL 0.2 mg/dL (0.2-1); TOT PROT 6.3 g/dl (6.4-8.2)
[2022-08-17] MEDS ORDERED: KETOROLAC TROMETHAMINE 30 MG/1 ML VIAL ONE (07:00)
[2022-08-17] MEDS ORDERED: clonazePAM 0.5 MG TABLET ONE (07:00)
[2022-08-17] MEDS ORDERED: PIPERACILLIN/TAZOB 3.375 GM 3.375 GM/50 ML BAG IVPB ONE ×2 (07:01→09:43)
[2022-08-17] MEDS: PIPERACILLIN/TAZOB 3.375 GM 3.375 GM in DEXTROSE 5%-WATER - 50 ML IVPB SCH ×3 (07:07→18:57)
[2022-08-17] MEDS: clonazePAM 0.5 MG TABLET PO SCH ×3 (07:07→23:32)
[2022-08-17 07:50] LABS: HIV INTERPRETATION NEGATIVE (NEGATIVE)
[2022-08-17] MEDS ORDERED: PATIENT'S OWN MEDICATION (NON-FORMULARY) (Dextroamphetamine/Amphetamine [Adderall 10 Mg Ta PO SCH (10:00)
[2022-08-17] MEDS ORDERED: methaDONE HCL 10 MG TABLET PO ONE (10:00)
[2022-08-17] MEDS ORDERED: LIDOCAINE 1%/EPI 1:100000 (20 ML MULTI DOSE VIAL) IJ ONE (10:33)
[2022-08-17] MEDS ORDERED: methaDONE HCL 10 MG TABLET ONE (10:36)
[2022-08-17] MEDS ORDERED: LIDOCAINE HCL 1%, 10 MG/ML (10ML VIAL) MDV ONE (10:37)
[2022-08-17] MEDS ORDERED: ENOXAPARIN NA (PORCINE) 40 MG/0.4 ML DISP.SYRIN SQ ONE (10:37)
[2022-08-17] MEDS: ENOXAPARIN NA (PORCINE) 40 MG/0.4 ML DISP.SYRIN SQ SCH (10:48)
[2022-08-17] MEDS: KETOROLAC TROMETHAMINE 15 MG/ML VIAL IVPUSH PRN (15:40)
[2022-08-17 20:51] VITALS: BMI 32.4
[2022-08-17] MEDS ORDERED: traZODone HCL 150 MG TABLET PO SCH (22:00)
[2022-08-17] MEDS ORDERED: VANCOMYCIN/WATER 1250 MG 1,250 MG/250 ML BAG IVPB SCH (22:00)
[2022-08-17] MEDS ORDERED: PRAZOSIN HCL 2 MG CAPSULE PO SCH (22:00)
[2022-08-18] MEDS: PIPERACILLIN/TAZOB 3.375 GM 3.375 GM in DEXTROSE 5%-WATER - 50 ML IVPB SCH ×2 (01:49→09:59)
[2022-08-18] MEDS: clonazePAM 0.5 MG TABLET PO SCH ×2 (05:26→14:35)
[2022-08-18] MEDS: KETOROLAC TROMETHAMINE 15 MG/ML VIAL IVPUSH PRN (06:43)
[2022-08-18] MEDS: ENOXAPARIN NA (PORCINE) 40 MG/0.4 ML DISP.SYRIN SQ SCH (09:57)
[2022-08-18] MEDS: ACETAMINOPHEN 1000 MG/100 ML BAG IVPB SCH ×2 (11:40→18:26)
[2022-08-18 11:42] LABS: BASO % 0.6 % (0-2.0); EOS % 7.5 % (0-4.5); HEMATOCRIT 32.7 % (32.4-45.2); HEMOGLOBIN 11.4 GM/dL (10.7-15.3); LYMPH % 27.8 % (8-40); MCH 30.4 pg (25.7-33.7); MCHC 34.8 g/dl (32.0-36.0); MEAN CELL VOLUME 87.5 fl (80-96); MEAN PLT VOLUME 7.1 fl (7.5-11.1); MONO % 6.2 % (3.8-10.2); NEUT % 57.9 % (42.8-82.8); PLATELET COUNT 275 10^3/uL (134-434); RBC 3.73 M/mm3 (3.60-5.2); RDW 12.5 % (11.6-15.6); WHITE BLOOD COUNT 3.5 K/mm3 (4.0-10.0)
[2022-08-18 12:05] LABS: CALCIUM 8.9 mg/dL (8.5-10.1)
[2022-08-18 12:06] LABS: ALBUMIN 3.2 g/dl (3.4-5.0)
[2022-08-18 12:09] LABS: CREATININE 0.7 mg/dL (0.55-1.3)
[2022-08-18 12:10] LABS: BILIRUBIN,TOTAL 0.7 mg/dL (0.2-1)
[2022-08-18 12:11] LABS: TOT PROT 6.6 g/dl (6.4-8.2)
[2022-08-18 14:11] VITALS: RESP 18
[2022-08-18] MEDS ORDERED: oxyCODONE HCL 5 MG TABLET PO PRN (14:50)
[2022-08-18] MEDS ORDERED: KETOROLAC TROMETHAMINE 15 MG/ML VIAL IVPUSH PRN (14:51)
[2022-08-18] MEDS ORDERED: AMOX TR/POT CLAV 875MG/125MG TABLETS (FP) PO SCH (17:30)
[2022-08-18 18:04] VITALS: BP 110/60; PULSE 72; TEMP 98.2
== END 2022-08-18 21:29 | disposition home or self-care (01) ==
LOC: JERFT 16:48 → JERBED 21:30 → J8W 08-17 15:32
PROVIDERS: ADMIT Internal Medicine; ATTEND Nurse Practitioner Acute Care
PROC: 0H9JXZZ Drainage of Left Upper Leg Skin, External Approach (ICD-10-PCS; principal; 2022-08-16)
PROC: 3E03329 Introduction of Other Anti-infective into Peripheral Vein, Percutaneous Approach (ICD-10-PCS; 2022-08-16)
PROC: 3E033GC Introduction of Other Therapeutic Substance into Peripheral Vein, Percutaneous Approach (ICD-10-PCS; 2022-08-16)
PROC: 3E013GC Introduction of Other Therapeutic Substance into Subcutaneous Tissue, Percutaneous Approach (ICD-10-PCS; 2022-08-16)
PROC: 3E033NZ Introduction of Analgesics, Hypnotics, Sedatives into Peripheral Vein, Percutaneous Approach (ICD-10-PCS; 2022-08-16)
PROC: 3E0333Z Introduction of Anti-inflammatory into Peripheral Vein, Percutaneous Approach (ICD-10-PCS; 2022-08-16)
DX: L03.116 Cellulitis of left lower limb (principal); L02.416 Cutaneous abscess of left lower limb; F32.A Depression, unspecified; F41.9 Anxiety disorder, unspecified; F90.9 Attention-deficit hyperactivity disorder, unspecified type; J45.909 Unspecified asthma, uncomplicated; F19.10 Other psychoactive substance abuse, uncomplicated; Z29.8 Encounter for other specified prophylactic measures; Z91.013 Allergy to seafood
CPT/HCPCS: 0241U-QW; 10060; 36415; 76882-TC-RT-FY; 80053; 83036; 83735; 85025; 86140; 87040; 87070; 87081; 87205; 87389; 87522; 93005; 93010; 96365; 96368; 96372; 96375; 99285-25; G0378

== ENCOUNTER 2022-08-18 23:09 | Observation (INO) | payer OTHER ==
[2022-08-18 23:19] VITALS: BMI 29.2
[2022-08-19] MEDS ORDERED: AMOX TR/POT CLAV 875MG/125MG TABLETS (FP) PO ONE (00:50)
[2022-08-19] MEDS ORDERED: ACETAMINOPHEN 1000 MG/100 ML BAG IVPB PRN (01:17)
[2022-08-19] MEDS ORDERED: ALBUTEROL SO4 HFA INHALER IH PRN (01:18)
[2022-08-19 01:37] LABS: BASO % 0.5 % (0-2.0); EOS % 1.7 % (0-4.5); HEMATOCRIT 34.6 % (32.4-45.2); HEMOGLOBIN 12.1 GM/dL (10.7-15.3); LYMPH % 22.9 % (8-40); MCH 30.4 pg (25.7-33.7); MCHC 35.1 g/dl (32.0-36.0); MEAN CELL VOLUME 86.8 fl (80-96); MEAN PLT VOLUME 6.8 fl (7.5-11.1); MONO % 6.8 % (3.8-10.2); NEUT % 68.1 % (42.8-82.8); PLATELET COUNT 309 10^3/uL (134-434); RBC 3.99 M/mm3 (3.60-5.2); RDW 12.3 % (11.6-15.6); WHITE BLOOD COUNT 4.9 K/mm3 (4.0-10.0)
[2022-08-19 01:51] LABS: CALCIUM 9.1 mg/dL (8.5-10.1)
[2022-08-19 01:52] LABS: ALBUMIN 3.4 g/dl (3.4-5.0); BLOOD UREA NITROGEN 9.2 mg/dL (7-18); MAGNESIUM 2.1 mg/dL (1.8-2.4)
[2022-08-19 01:55] LABS: CREATININE 0.7 mg/dL (0.55-1.3)
[2022-08-19 01:57] LABS: BILIRUBIN,TOTAL 0.3 mg/dL (0.2-1); TOT PROT 7.2 g/dl (6.4-8.2)
[2022-08-19 04:39] VITALS: BP 105/59
[2022-08-19 04:59] VITALS: PULSE 66; RESP 18; TEMP 97.8
[2022-08-19] MEDS ORDERED: clonazePAM 0.5 MG TABLET PO SCH (06:00)
[2022-08-19] MEDS ORDERED: AMOX TR/POT CLAV 875MG/125MG TABLETS (FP) PO SCH (08:00)
[2022-08-19] MEDS ORDERED: ENOXAPARIN NA (PORCINE) 40 MG/0.4 ML DISP.SYRIN SQ SCH (10:00)
[2022-08-19] MEDS ORDERED: PATIENT'S OWN MEDICATION (NON-FORMULARY) (Dextroamphetamine/Amphetamine [Adderall 10 Mg Ta PO SCH (10:00)
[2022-08-19 10:05] LABS: OPIATES, URI NEGATIVE (NEGATIVE)
[2022-08-19 10:06] LABS: PHENCYCLIDINE,URINE NEGATIVE (NEGATIVE); URINE BENZODIAZEPINES NEGATIVE (NEGATIVE)
[2022-08-19 10:07] LABS: URINE AMPHETAMINES NEGATIVE (NEGATIVE)
[2022-08-19 10:13] LABS: COCAINE, UR POSITIVE (NEGATIVE); METHADONE, UR NEGATIVE (NEGATIVE); URINE BARBITURATES NEGATIVE (NEGATIVE)
[2022-08-19] MEDS ORDERED: PRAZOSIN HCL 1 MG CAPSULE PO SCH (22:00)
[2022-08-19] MEDS ORDERED: traZODone HCL 50 MG TABLET (FP) PO SCH (22:00)
== END 2022-08-19 11:47 | disposition home or self-care (01) ==
LOC: JER 23:09 → JERBED 08-19 00:49 → J6S 08-19 04:38
PROVIDERS: ADMIT Internal Medicine; ATTEND Nurse Practitioner Acute Care
PROC: 3E013GC Introduction of Other Therapeutic Substance into Subcutaneous Tissue, Percutaneous Approach (ICD-10-PCS; principal; 2022-08-19)
DX: L03.116 Cellulitis of left lower limb (principal); E31.9 Polyglandular dysfunction, unspecified; F17.210 Nicotine dependence, cigarettes, uncomplicated; F43.10 Post-traumatic stress disorder, unspecified; Z86.39 Personal history of other endocrine, nutritional and metabolic disease
CPT/HCPCS: 36415; 71045-TC-FY; 80053; 80307; 83735; 84703; 85025; 86140; 93005; 93010; 96372; 99285-25; C9803-CS; G0378; U0003; U0005

== ENCOUNTER 2022-12-07 23:48 | Inpatient (IN) | payer OTHER ==
[2022-12-08 00:53] VITALS: BMI 23.6
[2022-12-08] MEDS ORDERED: ACETAMINOPHEN 325 MG TABLET (FP) PO PRN (01:39)
[2022-12-08] MEDS ORDERED: DICYCLOMINE HCL 10 MG CAPSULE PO PRN (01:39)
[2022-12-08] MEDS ORDERED: IBUPROFEN 400 MG TABLET (FP) PO PRN (01:39)
[2022-12-08] MEDS ORDERED: guaiFENesin 600 MG TABLET.ER (FP) PO PRN (01:39)
[2022-12-08] MEDS ORDERED: NALOXONE HCL (KLOXXADO) 8 MG SPRAY NS PRN (01:39)
[2022-12-08] MEDS ORDERED: NICOTINE POLACRILEX 2 MG GUM BUC PRN (01:39)
[2022-12-08] MEDS ORDERED: NALOXONE HCL 0.4 MG/ML VIAL IM PRN (01:39)
[2022-12-08] MEDS ORDERED: MAGNESIUM HYDROX 2400MG/30ML ORAL SUSPENSION 30 ML CUP PO PRN (01:39)
[2022-12-08] MEDS ORDERED: LOPERAMIDE HCL 2 MG CAPSULE PO PRN (01:39)
[2022-12-08] MEDS ORDERED: BISMUTH SUBSALICYLATE 524 MG/30 ML PO PRN (01:39)
[2022-12-08] MEDS ORDERED: BENZOCAINE/MENTHOL (CHLORASEPTIC ) LOZENGE MM PRN (01:39)
[2022-12-08] MEDS ORDERED: BENZONATATE 200 MG CAPSULE PO PRN (01:39)
[2022-12-08] MEDS ORDERED: POLYETHYLENE GLYCOL (HEALTHYLAX) 3350 17 GM PACKET PO PRN (01:39)
[2022-12-08] MEDS ORDERED: ONDANSETRON *ODT* 4 MG TABLET SL PRN (01:39)
[2022-12-08] MEDS ORDERED: IBUPROFEN 600 MG TABLET (FP) PO PRN (01:39)
[2022-12-08] MEDS ORDERED: MAG HYDROX/AL HYDROX/SIMETH 30 ML UNIT-DOSE CUP PO PRN (01:39)
[2022-12-08] MEDS ORDERED: HYDROCORTISONE 1% TOPICAL CREAM 30 GM TUBE TP PRN (01:53)
[2022-12-08] MEDS ORDERED: NICOTINE 14 MG/24 HOURS TOPICAL PATCH TD SCH (10:00)
[2022-12-08] MEDS: PRENATAL VITAMINS W/ FOLIC ACID TABLET (FP) PO SCH (10:55)
[2022-12-08] MEDS: NICOTINE 14 MG/24 HOURS TOPICAL PATCH TD SCH (10:55)
[2022-12-08] MEDS ORDERED: cloNIDine HCL 0.1 MG TABLET PO PRN (11:07)
[2022-12-08] MEDS ORDERED: methaDONE HCL 10 MG TABLET (FOR DETOX USE ONLY) PO ONE (11:07)
[2022-12-08] MEDS ORDERED: ALBUTEROL SO4 HFA INHALER IH PRN (11:18)
[2022-12-08 13:46] LABS: HEMATOCRIT 34.9 % (32.4-45.2); HEMOGLOBIN 11.6 GM/dL (10.7-15.3); MCH 29.3 pg (25.7-33.7); MCHC 33.4 g/dl (32.0-36.0); MEAN CELL VOLUME 87.9 fl (80-96); MEAN PLT VOLUME 7.3 fl (7.5-11.1); PLATELET COUNT 311 10^3/uL (134-434); RBC 3.97 M/mm3 (3.60-5.2); RDW 14.1 % (11.6-15.6); WHITE BLOOD COUNT 6.7 K/mm3 (4.0-10.0)
[2022-12-08 14:07] LABS: POTASSIUM 4.3 mmol/L (3.5-5.1)
[2022-12-08 14:13] LABS: BLOOD UREA NITROGEN 12.8 mg/dL (7-18); CALCIUM 8.8 mg/dL (8.5-10.1)
[2022-12-08 14:14] LABS: ALBUMIN 3.1 g/dl (3.4-5.0)
[2022-12-08 14:15] LABS: CREATININE 0.6 mg/dL (0.55-1.3)
[2022-12-08 14:17] LABS: BILIRUBIN,TOTAL 0.5 mg/dL (0.2-1); TOT PROT 6.3 g/dl (6.4-8.2)
[2022-12-08] MEDS ORDERED: clonazePAM 0.5 MG ODT TABLETS SL ONE (19:28)
[2022-12-08] MEDS: PRAZOSIN HCL 1 MG CAPSULE PO SCH (22:56)
[2022-12-08] MEDS: hydrOXYzine PAMOATE 25 MG CAPSULE (FP) PO PRN (22:57)
[2022-12-08] MEDS: THIAMINE HCL 100 MG TABLET (FP) PO SCH (22:57)
[2022-12-08] MEDS: METHOCARBAMOL 500 MG TABLET PO PRN (22:57)
[2022-12-08] MEDS: traZODone HCL 50 MG TABLET (FP) PO SCH (22:57)
[2022-12-09] MEDS: MELATONIN 5 MG TABLETS PO SCH ×2 (00:12→22:43)
[2022-12-09] MEDS: PRENATAL VITAMINS W/ FOLIC ACID TABLET (FP) PO SCH (09:34)
[2022-12-09] MEDS: NICOTINE 14 MG/24 HOURS TOPICAL PATCH TD SCH (09:43)
[2022-12-09] MEDS: traZODone HCL 50 MG TABLET (FP) PO SCH (22:43)
[2022-12-09] MEDS: THIAMINE HCL 100 MG TABLET (FP) PO SCH (22:43)
[2022-12-09] MEDS: PRAZOSIN HCL 1 MG CAPSULE PO SCH (22:45)
[2022-12-09] MEDS: LITHIUM CARBONATE 300 MG CAPSULE PO SCH (22:45)
[2022-12-10] MEDS: PRENATAL VITAMINS W/ FOLIC ACID TABLET (FP) PO SCH (09:29)
[2022-12-10] MEDS: clonazePAM 0.5 MG ODT TABLETS SL SCH (09:30)
[2022-12-10] MEDS: NICOTINE 14 MG/24 HOURS TOPICAL PATCH TD SCH (09:31)
[2022-12-10] MEDS ORDERED: methaDONE HCL 10 MG TABLET (FOR DETOX USE ONLY) PO ONE (10:00)
[2022-12-10] MEDS: MELATONIN 5 MG TABLETS PO SCH (23:05)
[2022-12-10] MEDS: hydrOXYzine PAMOATE 25 MG CAPSULE (FP) PO PRN (23:05)
[2022-12-10] MEDS: traZODone HCL 50 MG TABLET (FP) PO SCH (23:05)
[2022-12-10] MEDS: METHOCARBAMOL 500 MG TABLET PO PRN (23:06)
[2022-12-10] MEDS: PRAZOSIN HCL 1 MG CAPSULE PO SCH (23:06)
[2022-12-10] MEDS: LITHIUM CARBONATE 300 MG CAPSULE PO SCH (23:06)
[2022-12-10] MEDS: THIAMINE HCL 100 MG TABLET (FP) PO SCH (23:07)
[2022-12-11] MEDS: clonazePAM 0.5 MG ODT TABLETS SL SCH (09:36)
[2022-12-11] MEDS: PRENATAL VITAMINS W/ FOLIC ACID TABLET (FP) PO SCH (09:36)
[2022-12-11] MEDS: NICOTINE 14 MG/24 HOURS TOPICAL PATCH TD SCH (09:38)
[2022-12-11] MEDS: THIAMINE HCL 100 MG TABLET (FP) PO SCH (21:40)
[2022-12-11] MEDS: traZODone HCL 50 MG TABLET (FP) PO SCH (21:40)
[2022-12-11] MEDS: MELATONIN 5 MG TABLETS PO SCH (21:40)
[2022-12-11] MEDS: PRAZOSIN HCL 1 MG CAPSULE PO SCH (21:40)
[2022-12-11] MEDS: LITHIUM CARBONATE 300 MG CAPSULE PO SCH (21:40)
[2022-12-12] MEDS: PRENATAL VITAMINS W/ FOLIC ACID TABLET (FP) PO SCH (09:51)
[2022-12-12] MEDS: NICOTINE 14 MG/24 HOURS TOPICAL PATCH TD SCH (09:52)
[2022-12-12] MEDS: clonazePAM 0.5 MG ODT TABLETS SL SCH (09:52)
[2022-12-12] MEDS ORDERED: methaDONE HCL 10 MG TABLET (FOR DETOX USE ONLY) PO ONE (10:00)
[2022-12-12] MEDS: PRAZOSIN HCL 1 MG CAPSULE PO SCH (21:50)
[2022-12-12] MEDS: hydrOXYzine PAMOATE 25 MG CAPSULE (FP) PO PRN (21:51)
[2022-12-12] MEDS: THIAMINE HCL 100 MG TABLET (FP) PO SCH (21:51)
[2022-12-12] MEDS: traZODone HCL 50 MG TABLET (FP) PO SCH (21:51)
[2022-12-12] MEDS: MELATONIN 5 MG TABLETS PO SCH (21:52)
[2022-12-12] MEDS ORDERED: LITHIUM CARBONATE 300 MG CAPSULE PO SCH (22:00)
[2022-12-13 09:10] VITALS: RESP 18
[2022-12-13] MEDS: clonazePAM 0.5 MG ODT TABLETS SL SCH (09:54)
[2022-12-13] MEDS: PRENATAL VITAMINS W/ FOLIC ACID TABLET (FP) PO SCH (09:54)
[2022-12-13] MEDS: NICOTINE 14 MG/24 HOURS TOPICAL PATCH TD SCH (09:55)
[2022-12-13 13:21] VITALS: BP 103/67; PULSE 68; TEMP 97.4
== END 2022-12-13 14:34 | disposition home or self-care (01) | DRG 773 ==
LOC: YASAS 23:48 → Y3N 12-08 02:24
PROVIDERS: ADMIT Allergy & Immunology; ATTEND Allergy & Immunology
PROC: HZ2ZZZZ Detoxification Services for Substance Abuse Treatment (ICD-10-PCS; principal; 2022-12-08)
DX: F11.23 Opioid dependence with withdrawal (principal); F13.230 Sedative, hypnotic or anxiolytic dependence with withdrawal, uncomplicated; F14.20 Cocaine dependence, uncomplicated; F17.210 Nicotine dependence, cigarettes, uncomplicated; F19.94 Other psychoactive substance use, unspecified with psychoactive substance-induced mood disorder; F31.9 Bipolar disorder, unspecified; F43.10 Post-traumatic stress disorder, unspecified; G47.00 Insomnia, unspecified; M54.40 Lumbago with sciatica, unspecified side; G89.29 Other chronic pain; Z86.69 Personal history of other diseases of the nervous system and sense organs; Z28.310 Unvaccinated for COVID-19; Z56.0 Unemployment, unspecified; Z59.00 Homelessness unspecified
CPT/HCPCS: 36415; 80053; 80178; 81025; 85027; 86780; 87635; 87811

== ENCOUNTER 2023-01-15 12:54 | Inpatient (IN) | payer OTHER ==
[2023-01-15 14:20] VITALS: BMI 24.4
[2023-01-15] MEDS ORDERED: IBUPROFEN 400 MG TABLET (FP) PO PRN (15:55)
[2023-01-15] MEDS ORDERED: POLYETHYLENE GLYCOL (HEALTHYLAX) 3350 17 GM PACKET PO PRN (15:55)
[2023-01-15] MEDS ORDERED: BISMUTH SUBSALICYLATE 524 MG/30 ML PO PRN (15:55)
[2023-01-15] MEDS ORDERED: BENZONATATE 200 MG CAPSULE PO PRN (15:55)
[2023-01-15] MEDS ORDERED: BENZOCAINE/MENTHOL (CHLORASEPTIC ) LOZENGE MM PRN (15:55)
[2023-01-15] MEDS ORDERED: LOPERAMIDE HCL 2 MG CAPSULE PO PRN (15:55)
[2023-01-15] MEDS ORDERED: IBUPROFEN 600 MG TABLET (FP) PO PRN (15:55)
[2023-01-15] MEDS ORDERED: MAG HYDROX/AL HYDROX/SIMETH 30 ML UNIT-DOSE CUP PO PRN (15:55)
[2023-01-15] MEDS ORDERED: ONDANSETRON *ODT* 4 MG TABLET SL PRN (15:55)
[2023-01-15] MEDS ORDERED: NALOXONE HCL 0.4 MG/ML VIAL IM PRN (15:55)
[2023-01-15] MEDS ORDERED: hydrOXYzine PAMOATE 25 MG CAPSULE (FP) PO PRN (15:55)
[2023-01-15] MEDS ORDERED: NALOXONE HCL (KLOXXADO) 8 MG SPRAY NS PRN (15:55)
[2023-01-15] MEDS ORDERED: METHOCARBAMOL 500 MG TABLET PO PRN (15:55)
[2023-01-15] MEDS ORDERED: ACETAMINOPHEN 325 MG TABLET (FP) PO PRN (15:55)
[2023-01-15] MEDS ORDERED: DICYCLOMINE HCL 10 MG CAPSULE PO PRN (15:55)
[2023-01-15] MEDS ORDERED: MAGNESIUM HYDROX 2400MG/30ML ORAL SUSPENSION 30 ML CUP PO PRN (15:55)
[2023-01-15] MEDS ORDERED: guaiFENesin 600 MG TABLET.ER (FP) PO PRN (15:55)
[2023-01-15] MEDS ORDERED: NICOTINE POLACRILEX 2 MG GUM BUC PRN (15:55)
[2023-01-15] MEDS ORDERED: methaDONE HCL 10 MG TABLET (FOR DETOX USE ONLY) PO ONE (16:00)
[2023-01-15] MEDS ORDERED: cloNIDine HCL 0.1 MG TABLET PO PRN (16:00)
[2023-01-15] MEDS ORDERED: methaDONE HCL 10 MG TABLET (FOR DETOX USE ONLY) ONE (16:54)
[2023-01-15] MEDS: MELATONIN 5 MG TABLETS PO SCH (22:43)
[2023-01-15] MEDS: THIAMINE HCL 100 MG TABLET (FP) PO SCH (22:43)
[2023-01-16] MEDS: NICOTINE 21 MG/24 HOURS TOPICAL PATCH TD SCH (10:30)
[2023-01-16] MEDS: PRENATAL VITAMINS W/ FOLIC ACID TABLET (FP) PO SCH (10:30)
[2023-01-16] MEDS ORDERED: ALBUTEROL SO4 HFA INHALER IH PRN (11:27)
[2023-01-16 12:27] LABS: POTASSIUM 3.8 mmol/L (3.5-5.1)
[2023-01-16 12:29] LABS: HEMATOCRIT 37.6 % (32.4-45.2); MCH 30.1 pg (25.7-33.7); MCHC 34.5 g/dl (32.0-36.0); MEAN CELL VOLUME 87.1 fl (80-96); PLATELET COUNT 387 10^3/uL (134-434); RBC 4.31 M/mm3 (3.60-5.2); RDW 13.9 % (11.6-15.6)
[2023-01-16 12:42] LABS: ALBUMIN 3.2 g/dl (3.4-5.0); BLOOD UREA NITROGEN 6.5 mg/dL (7-18); CALCIUM 8.9 mg/dL (8.5-10.1)
[2023-01-16 12:45] LABS: CREATININE 0.6 mg/dL (0.55-1.3)
[2023-01-16 12:46] LABS: BILIRUBIN,TOTAL 0.5 mg/dL (0.2-1); TOT PROT 6.3 g/dl (6.4-8.2)
[2023-01-16] MEDS: MELATONIN 5 MG TABLETS PO SCH (22:24)
[2023-01-16] MEDS: THIAMINE HCL 100 MG TABLET (FP) PO SCH (22:24)
[2023-01-16] MEDS: PRAZOSIN HCL 1 MG CAPSULE PO SCH (22:25)
[2023-01-16] MEDS: traZODone HCL 100 MG TABLET (FP) PO SCH (22:25)
[2023-01-17] MEDS: PRENATAL VITAMINS W/ FOLIC ACID TABLET (FP) PO SCH (09:27)
[2023-01-17] MEDS: NICOTINE 21 MG/24 HOURS TOPICAL PATCH TD SCH (09:27)
[2023-01-17] MEDS ORDERED: methaDONE HCL 10 MG TABLET (FOR DETOX USE ONLY) PO ONE (10:00)
[2023-01-17] MEDS: traZODone HCL 100 MG TABLET (FP) PO SCH (21:31)
[2023-01-17] MEDS: MELATONIN 5 MG TABLETS PO SCH (21:31)
[2023-01-17] MEDS: THIAMINE HCL 100 MG TABLET (FP) PO SCH (21:31)
[2023-01-17] MEDS: PRAZOSIN HCL 1 MG CAPSULE PO SCH (21:32)
[2023-01-18] MEDS: PRENATAL VITAMINS W/ FOLIC ACID TABLET (FP) PO SCH (09:29)
[2023-01-18] MEDS: NICOTINE 21 MG/24 HOURS TOPICAL PATCH TD SCH (09:29)
[2023-01-18] MEDS: GABAPENTIN 300 MG CAPSULE PO SCH ×2 (18:04→21:54)
[2023-01-18] MEDS: MELATONIN 5 MG TABLETS PO SCH (21:53)
[2023-01-18] MEDS: THIAMINE HCL 100 MG TABLET (FP) PO SCH (21:55)
[2023-01-18] MEDS: PRAZOSIN HCL 1 MG CAPSULE PO SCH (21:55)
[2023-01-18] MEDS: traZODone HCL 100 MG TABLET (FP) PO SCH (21:55)
[2023-01-18] MEDS ORDERED: LITHIUM CARBONATE 300 MG CAPSULE PO SCH (22:00)
[2023-01-19] MEDS: GABAPENTIN 300 MG CAPSULE PO SCH (05:51)
[2023-01-19 09:45] VITALS: BP 99/64; PULSE 92; RESP 20; TEMP 98
[2023-01-19] MEDS ORDERED: methaDONE HCL 10 MG TABLET (FOR DETOX USE ONLY) PO ONE (10:00)
[2023-01-19] MEDS: PRENATAL VITAMINS W/ FOLIC ACID TABLET (FP) PO SCH (10:09)
[2023-01-19] MEDS: NICOTINE 21 MG/24 HOURS TOPICAL PATCH TD SCH (10:10)
[2023-01-19 14:27] LABS: POTASSIUM 4.9 mmol/L (3.5-5.1)
[2023-01-19 14:30] LABS: CALCIUM 9.1 mg/dL (8.5-10.1)
[2023-01-19 14:31] LABS: BLOOD UREA NITROGEN 11.4 mg/dL (7-18)
[2023-01-19 14:34] LABS: CREATININE 0.7 mg/dL (0.55-1.3)
== END 2023-01-19 11:26 | disposition other institution (70) | DRG 773 ==
LOC: YASAS 12:54 → Y3N 16:14
PROVIDERS: ADMIT Allergy & Immunology; ATTEND Surgery
PROC: HZ2ZZZZ Detoxification Services for Substance Abuse Treatment (ICD-10-PCS; principal; 2023-01-15)
DX: F11.23 Opioid dependence with withdrawal (principal); F14.20 Cocaine dependence, uncomplicated; F16.20 Hallucinogen dependence, uncomplicated; F12.20 Cannabis dependence, uncomplicated; F17.210 Nicotine dependence, cigarettes, uncomplicated; F31.9 Bipolar disorder, unspecified; F19.24 Other psychoactive substance dependence with psychoactive substance-induced mood disorder; J45.20 Mild intermittent asthma, uncomplicated; R94.31 Abnormal electrocardiogram [ECG] [EKG]; Z86.19 Personal history of other infectious and parasitic diseases; Z28.310 Unvaccinated for COVID-19; Z28.9 Immunization not carried out for unspecified reason
CPT/HCPCS: 36415; 80048; 80053; 80178; 81025; 85027; 86780; 87635; 93005; 93010

== ENCOUNTER 2023-01-15 22:42 | Emergency (ER) | payer OTHER ==
[2023-01-15 22:53] VITALS: BP 110/62; PULSE 60; RESP 16; TEMP 98.4; BMI 23.9
[2023-01-15] MEDS ORDERED: ACETAMINOPHEN 1000 MG/100 ML BAG IVPB ONE (23:50)
[2023-01-16] MEDS ORDERED: ACETAMINOPHEN INJECTION 100 ML IVPB ONE (00:26)
[2023-01-16 00:59] LABS: BASO % 0.6 % (0-2.0); EOS % 2.5 % (0-4.5); HEMATOCRIT 39.4 % (32.4-45.2); HEMOGLOBIN 13.5 GM/dL (10.7-15.3); LYMPH % 34.2 % (8-40); MCH 29.9 pg (25.7-33.7); MCHC 34.3 g/dl (32.0-36.0); MEAN PLT VOLUME 6.8 fl (7.5-11.1); MONO % 7.6 % (3.8-10.2); NEUT % 55.1 % (42.8-82.8); PLATELET COUNT 441 10^3/uL (134-434); RBC 4.52 M/mm3 (3.60-5.2); RDW 14.2 % (11.6-15.6); WHITE BLOOD COUNT 9.4 K/mm3 (4.0-10.0)
[2023-01-16 01:18] LABS: POTASSIUM 4.1 mmol/L (3.5-5.1)
[2023-01-16 01:20] LABS: ALBUMIN 3.4 g/dl (3.4-5.0); BLOOD UREA NITROGEN 9.8 mg/dL (7-18); CALCIUM 9.1 mg/dL (8.5-10.1)
[2023-01-16 01:23] LABS: CREATININE 0.6 mg/dL (0.55-1.3)
[2023-01-16 01:25] LABS: BILIRUBIN,TOTAL 0.3 mg/dL (0.2-1)
== END 2023-01-16 05:29 | disposition home or self-care (01) ==
LOC: JER 22:42
PROC: 3E033NZ Introduction of Analgesics, Hypnotics, Sedatives into Peripheral Vein, Percutaneous Approach (ICD-10-PCS; principal; 2023-01-15)
DX: R07.9 Chest pain, unspecified (principal); R06.02 Shortness of breath; Z20.822 Contact with and (suspected) exposure to COVID-19
CPT/HCPCS: 0241U-QW; 36415; 71045-TC-FY; 71275-TC; 80053; 84484; 84703; 85025; 85379; 93005; 93010; 99285-25; Q9967